=== PATIENT | female | born 1960 | race Caucasian/White ===

== ENCOUNTER 2017-08-07 20:35 | Inpatient (IN) | payer MEDICAID ==
[~2017-08-07] VITALS: Ht 142.2 cm; Wt 51.4 kg
[2017-08-07] MEDS ORDERED: SODIUM CHLORIDE 0.9% 1,000 ML IV ONE (20:42)
[2017-08-07] MEDS ORDERED: IPRATROPIUM BROM 0.5 MG/2.5ML INH SOL NEB ONE (20:45)
[2017-08-07] MEDS ORDERED: methylPREDNISolone SOD SUCC 125 MG/2 ML VL IV ONE (20:45)
[2017-08-07] MEDS ORDERED: ALBUTEROL SULF 2.5 MG/0.5ML(0.5%) NEB SOLN NEB ONE (20:45)
[2017-08-07 21:21] LABS: Hemoglobin 8.8 g/dL (12.2-16.2); Red Blood Cells 2.48 10^6/uL (4.0-5.20)
[2017-08-07 21:23] LABS: Hematocrit 25.3 % (36.0-46.0); Mean Corpuscular Hemoglobin 35.5 pg (28.0-32.0); Mean Corpuscular Hgb Conc. 34.7 g/dL (32.0-36.0); Mean Corpuscular Volume 102.1 fL (80.0-100.0); Platelet Count (auto) 180 10^3/uL (140-450); Red Cell Distribution Width 15.6 % (11.8-14.3); White Blood Cell 7.3 10^3/uL (4.4-10.8)
[2017-08-07 21:36] LABS: Basophils % (manual) 0 (0.0-2.0); Blast Cells 0; Metamyelocytes % 0; Myelocytes % 0; Promyelocytes % 0; Reactive Lymphocytes 0
[2017-08-07 21:39] LABS: Alanine Aminotransferase 40 U/L (13-56); Albumin 2.7 g/dL (3.4-5.0); Alkaline Phosphatase 168 U/L (45-117); Anion Gap 10 (5-15); Aspartate Aminotransferase 99 U/L (15-37); BUN/Creatinine Ratio 14.3; Bilirubin, Total 1.9 mg/dL (0.2-1.0); Blood Urea Nitrogen 9 mg/dL (7-18); Calcium 8.1 mg/dL (8.5-10.1); Carbon Dioxide 20 mmol/L (21-32); Chloride 105 mmol/L (98-107); GFR African American 125 mL/min; GFR Non-African American 104 mL/min; Glucose 117 mg/dL (74-106); Magnesium 2.3 mg/dL (1.6-2.6); Sodium 135 mmol/L (136-145); Total Protein 8.2 g/dL (6.4-8.2)
[2017-08-07 21:44] LABS: INR 1.18 (0.9-1.15); Partial Thromboplastin Time 30.2 sec (22.64-33.71); Prothrombin Time 12.9 sec (9.37-12.3)
[2017-08-07] MEDS ORDERED: MORPHINE SULFATE 4 MG/ML SYR/VIAL IV ONE (21:45)
[2017-08-07] MEDS ORDERED: ONDANSETRON HCL 4 MG/2 ML VIAL IV ONE (21:45)
[2017-08-07 22:49] LABS: Urine Bacteria FEW /hpf (None Seen); Urine Blood Negative /uL (Negative); Urine Mucus FEW (None Seen); Urine Specific Gravity 1.015 (1.001-1.035); Urine WBC 13 /hpf (0 - 5)
[2017-08-07 23:05] LABS: Band Neutrophils % (manual) 2; Lymphocytes % (manual) 20 (10.0-50.0)
[2017-08-07 23:06] LABS: Eosinophils % (manual) 10 (0-7); Monocytes % (manual) 16 (0-12)
[2017-08-08] MEDS ORDERED: IOHEXOL 350 MG/ML 100ML IJ ONE (00:28)
[2017-08-08] MEDS ORDERED: FUROSEMIDE 20 MG/2 ML VIAL IV ONE (02:15)
[2017-08-08] MEDS ORDERED: ACETAMINOPHEN 500 MG TAB PO PRN (06:30)
[2017-08-08] MEDS ORDERED: ONDANSETRON HCL 4 MG/2 ML VIAL IV PRN (06:30)
[2017-08-08] MEDS ORDERED: FUROSEMIDE 40 MG/4 ML VIAL IV ONE (06:30)
[2017-08-08 06:52] VITALS: BP 123/53
[2017-08-08] MEDS: HYDROcodone-ACET 5/325MG TAB PO PRN (06:53)
[2017-08-08] MEDS: DOXYCYCLINE HYC 100MG/250ML 250 ML IV SCH ×2 (06:53→19:41)
[2017-08-08] MEDS: LEVOTHYROXINE SODIUM 25 MCG TAB PO SCH (07:47)
[2017-08-08 08:15] LABS: Eosinophils # (auto) 0 uL; Hemoglobin 8.9 g/dL (12.2-16.2); Monocytes # (auto) 0.2 uL; Neutrophils % (auto) 84.6 % (37.0-80.0); Nucleated Red Blood Cells % 0.1 %
[2017-08-08 08:17] LABS: Basophils # (auto) 0.1 uL; Basophils % (auto) 1.9 % (0.0-2.0); Eosinophils % (auto) 0.1 % (0.0-7.0); Hematocrit 26.3 % (36.0-46.0); Lymphocytes # (auto) 0.6 uL; Lymphocytes % (auto) 10.5 % (10.0-50.0); Mean Corpuscular Hemoglobin 34.6 pg (28.0-32.0); Mean Corpuscular Hgb Conc. 33.9 g/dL (32.0-36.0); Monocytes % (auto) 2.9 % (0.0-12.0); Neutrophils # (auto) 5.1 uL; Platelet Count (auto) 174 10^3/uL (140-450); Red Blood Cells 2.58 10^6/uL (4.0-5.20); Red Cell Distribution Width 15.5 % (11.8-14.3)
[2017-08-08 08:28] LABS: BUN/Creatinine Ratio 14.4; Calcium 8.6 mg/dL (8.5-10.1); Potassium 4.6 mmol/L (3.5-5.1)
[2017-08-08] MEDS: IPRATROPIUM BROM 0.5 MG/2.5ML INH SOL NEB SCH ×2 (11:50→18:45)
[2017-08-08] MEDS: ALBUTEROL SULF 2.5 MG/0.5ML(0.5%) NEB SOLN NEB SCH ×2 (11:50→18:46)
[2017-08-08] MEDS: methylPREDNISolone SOD SUCC 40 MG/ML VL IV SCH ×2 (14:33→22:10)
[2017-08-08 17:42] VITALS: BP 120/64
[2017-08-08 17:56] VITALS: BP 120/64
[2017-08-08] MEDS: FUROSEMIDE 40 MG TAB PO SCH (19:20)
[2017-08-08] MEDS ORDERED: LEVO88TA4 PO (19:48)
[2017-08-08] MEDS ORDERED: SPIR100T21 PO (19:48)
[2017-08-08] MEDS ORDERED: POTA10TA51 PO (19:48)
[2017-08-08] MEDS ORDERED: BACL10TA PO (19:48)
[2017-08-08] MEDS ORDERED: ACET-863 PO (19:48)
[2017-08-08] MEDS ORDERED: FURO40TA4 PO (19:48)
[2017-08-08 22:00] VITALS: BP 120/74
[2017-08-09] MEDS: ALBUTEROL SULF 2.5 MG/0.5ML(0.5%) NEB SOLN NEB SCH ×6 (00:40→22:00)
[2017-08-09] MEDS: IPRATROPIUM BROM 0.5 MG/2.5ML INH SOL NEB SCH ×5 (00:40→18:06)
[2017-08-09] MEDS: HYDROcodone-ACET 5/325MG TAB PO PRN ×3 (00:48→21:29)
[2017-08-09 05:00] VITALS: BP 105/60
[2017-08-09] MEDS: methylPREDNISolone SOD SUCC 40 MG/ML VL IV SCH ×3 (06:10→21:30)
[2017-08-09] MEDS: LEVOTHYROXINE SODIUM 25 MCG TAB PO SCH (06:11)
[2017-08-09] MEDS: FUROSEMIDE 40 MG TAB PO SCH ×2 (06:11→17:46)
[2017-08-09] MEDS: DOXYCYCLINE HYC 100MG/250ML 250 ML IV SCH ×3 (06:12→17:47)
[2017-08-09 09:00] VITALS: BP 103/61
[2017-08-09 12:09] VITALS: BP 99/52
[2017-08-09 17:07] VITALS: BP 114/73
[2017-08-09] MEDS: BUDESONIDE (INHALATION) 0.5 MG/2 ML NEB NEB SCH (18:06)
[2017-08-09 22:00] VITALS: BP 97/45
[2017-08-10] MEDS: ALBUTEROL SULF 2.5 MG/0.5ML(0.5%) NEB SOLN NEB SCH ×4 (02:25→14:00)
[2017-08-10] MEDS: DOXYCYCLINE HYC 100MG/250ML 250 ML IV SCH ×2 (03:30→06:26)
[2017-08-10 05:00] VITALS: BP 106/67
[2017-08-10 05:33] LABS: Basophils # (auto) 0 uL; Basophils % (auto) 0.2 % (0.0-2.0); Eosinophils # (auto) 0 uL; Hemoglobin 8.2 g/dL (12.2-16.2); Lymphocytes # (auto) 0.8 uL; Monocytes # (auto) 1.3 uL; Red Blood Cells 2.41 10^6/uL (4.0-5.20)
[2017-08-10 05:36] LABS: Hematocrit 24.7 % (36.0-46.0); Lymphocytes % (auto) 5.5 % (10.0-50.0); Mean Corpuscular Hemoglobin 34.1 pg (28.0-32.0); Mean Corpuscular Hgb Conc. 33.2 g/dL (32.0-36.0); Mean Corpuscular Volume 102.9 fL (80.0-100.0); Monocytes % (auto) 9.6 % (0.0-12.0); Neutrophils # (auto) 11.9 uL; Neutrophils % (auto) 84.7 % (37.0-80.0); Platelet Count (auto) 155 10^3/uL (140-450); Red Cell Distribution Width 15.9 % (11.8-14.3)
[2017-08-10 05:57] LABS: BUN/Creatinine Ratio 29.7; Calcium 8.1 mg/dL (8.5-10.1)
[2017-08-10] MEDS: BUDESONIDE (INHALATION) 0.5 MG/2 ML NEB NEB SCH (05:58)
[2017-08-10] MEDS: IPRATROPIUM BROM 0.5 MG/2.5ML INH SOL NEB SCH ×3 (05:58→14:00)
[2017-08-10] MEDS: methylPREDNISolone SOD SUCC 40 MG/ML VL IV SCH ×2 (06:24→13:49)
[2017-08-10] MEDS: FUROSEMIDE 40 MG TAB PO SCH (06:24)
[2017-08-10] MEDS: LEVOTHYROXINE SODIUM 25 MCG TAB PO SCH (06:25)
[2017-08-10 09:00] VITALS: BP 110/57
[2017-08-10 12:59] VITALS: BP 106/67
[2017-08-10 13:00] VITALS: BP 101/53
== END 2017-08-10 16:00 | disposition home or self-care (01) | DRG 139 ==
LOC: ER 20:35 → TELE 20:36 → TELE-CENTR 08-08 17:42
PROVIDERS: ADMIT Nurse Practitioner Family; ATTEND Internal Medicine
DX: J18.9 Pneumonia, unspecified organism (principal); I50.43 Acute on chronic combined systolic (congestive) and diastolic (congestive) heart failure; E44.0 Moderate protein-calorie malnutrition; K74.60 Unspecified cirrhosis of liver; I11.0 Hypertensive heart disease with heart failure; J44.0 Chronic obstructive pulmonary disease with (acute) lower respiratory infection; F41.9 Anxiety disorder, unspecified; J44.1 Chronic obstructive pulmonary disease with (acute) exacerbation; E87.1 Hypo-osmolality and hyponatremia; J20.9 Acute bronchitis, unspecified; D64.9 Anemia, unspecified; B19.20 Unspecified viral hepatitis C without hepatic coma; E03.9 Hypothyroidism, unspecified; Z87.891 Personal history of nicotine dependence; Z90.49 Acquired absence of other specified parts of digestive tract; Z68.25 Body mass index [BMI] 25.0-25.9, adult
CPT/HCPCS: 36415; 36600; 71045; 71275; 80048; 80053; 81001; 82805; 83735; 83880; 84484; 85007; 85025; 85027; 85379; 85610; 85730; 87804; 93005; 94640; 96374; 96375; J2405; J3490

== ENCOUNTER 2017-11-18 15:53 | Inpatient (IN) | payer MEDICAID ==
[~2017-11-18] VITALS: Ht 142.2 cm; Wt 52.8 kg
[~2017-11-18 15:53] MED LIST: ACET-863 PO; BACL10TA PO; FURO40TA4 PO; LEVO88TA4 PO; POTA10TA51 PO; SPIR100T21 PO
[2017-11-18] MEDS ORDERED: IPRATROPIUM BROM 0.5 MG/2.5ML INH SOL HHN ONE (17:00)
[2017-11-18] MEDS ORDERED: ALBUTEROL SULF 2.5 MG/0.5ML(0.5%) NEB SOLN HHN ONE (17:00)
[2017-11-18] MEDS ORDERED: methylPREDNISolone SOD SUCC 125 MG/2 ML VL IV ONE (17:00)
[2017-11-18 18:27] LABS: Hematocrit 28.3 % (36.0-46.0); Hemoglobin 9.3 g/dL (12.2-16.2); Mean Corpuscular Hemoglobin 30.6 pg (28.0-32.0); Mean Corpuscular Hgb Conc. 32.9 g/dL (32.0-36.0); Mean Corpuscular Volume 93.2 fL (80.0-100.0); Platelet Count (auto) 216 10^3/uL (140-450); Red Blood Cells 3.04 10^6/uL (4.0-5.20); Red Cell Distribution Width 17.2 % (11.8-14.3); White Blood Cell 20.5 10^3/uL (4.4-10.8)
[2017-11-18 18:29] LABS: Band Neutrophils % (manual) 0; Basophils % (manual) 0 (0.0-2.0); Blast Cells 0; Metamyelocytes % 0; Myelocytes % 0; Promyelocytes % 0; Reactive Lymphocytes 0
[2017-11-18 18:35] LABS: Alanine Aminotransferase 26 U/L (13-56); Albumin 2.4 g/dL (3.4-5.0); Anion Gap 12 (5-15); Aspartate Aminotransferase 56 U/L (15-37); BUN/Creatinine Ratio 33.3; Blood Urea Nitrogen 39 mg/dL (7-18); Calcium 8.2 mg/dL (8.5-10.1); Carbon Dioxide 20 mmol/L (21-32); Chloride 105 mmol/L (98-107); GFR African American 61 mL/min; GFR Non-African American 51 mL/min; Glucose 95 mg/dL (74-106); Magnesium 2.7 mg/dL (1.6-2.6); Potassium 4.3 mmol/L (3.5-5.1); Sodium 137 mmol/L (136-145)
[2017-11-18 18:39] LABS: Alkaline Phosphatase 149 U/L (45-117); Total Protein 7.1 g/dL (6.4-8.2)
[2017-11-18 18:40] LABS: Eosinophils % (manual) 3 (0-7); Lymphocytes % (manual) 18 (10.0-50.0); Monocytes % (manual) 11 (0-12)
[2017-11-18] MEDS ORDERED: BACLOFEN 10 MG TAB PO PRN (19:15)
[2017-11-18] MEDS ORDERED: cefTRIAXone 1GM/10ml IVPUSH 10 ML IV ONE (19:15)
[2017-11-18] MEDS ORDERED: DOCUSATE SOD 100 MG CAP PO PRN (19:30)
[2017-11-18] MEDS ORDERED: ACETAMINOPHEN 325 MG TAB PO PRN (19:30)
[2017-11-18] MEDS ORDERED: AZITHROMYCIN 500MG/ 250ML 250 ML IV ONE (19:45)
[2017-11-18] MEDS: SODIUM CHLORIDE 0.9% 1,000 ML IV SCH ×2 (20:00→23:44)
[2017-11-18] MEDS: FAMOTIDINE 20 MG TAB PO SCH (20:00)
[2017-11-18 20:09] LABS: Urine Bacteria NONE SEEN /hpf (None Seen); Urine Blood Negative /uL (Negative); Urine Specific Gravity 1.017 (1.001-1.035); Urine WBC 1 /hpf (0 - 5)
[2017-11-18 20:23] LABS: Lactic Acid w/Reflex 3.2 mmol/L (0.4-2.0)
[2017-11-18 21:00] VITALS: BP 105/41
[2017-11-18] MEDS: POTASSIUM CHL 10 Meq TABLET PO SCH (22:01)
[2017-11-18] MEDS: HYDROcodone-ACET 5/325MG TAB PO PRN (22:01)
[2017-11-18 22:21] LABS: Lactic Acid w/Reflex 2.8 mmol/L (0.4-2.0)
[2017-11-19] VITALS (8 sets, daily range): BP systolic 89–165; BP diastolic 41–65
[2017-11-19] MEDS: ONDANSETRON HCL 4 MG/2 ML VIAL IV PRN ×3 (00:18→22:04)
[2017-11-19] MEDS: IPRATROPIUM BROM 0.5 MG/2.5ML INH SOL NEB SCH ×5 (00:50→18:15)
[2017-11-19] MEDS: ALBUTEROL SULF 2.5 MG/0.5ML(0.5%) NEB SOLN NEB SCH ×5 (00:50→18:15)
[2017-11-19] MEDS ORDERED: FUROSEMIDE 40 MG TAB PO SCH (06:00)
[2017-11-19] MEDS ORDERED: FLUT100I IN ×2 (06:01)
[2017-11-19] MEDS ORDERED: TIOT1AER2 IN ×2 (06:01)
[2017-11-19] MEDS ORDERED: AZIT250T8 PO (06:01)
[2017-11-19] MEDS: LEVOTHYROXINE SODIUM 25 MCG TAB PO SCH (06:28)
[2017-11-19] MEDS: HYDROcodone-ACET 5/325MG TAB PO PRN ×2 (06:29→17:05)
[2017-11-19 06:36] LABS: Basophils # (auto) 0 uL; Basophils % (auto) 0.1 % (0.0-2.0); Eosinophils # (auto) 0.1 uL; Hemoglobin 7.3 g/dL (12.2-16.2); Lymphocytes # (auto) 1.8 uL; Lymphocytes % (auto) 11.6 % (10.0-50.0); Monocytes # (auto) 0.8 uL; Nucleated Red Blood Cells % 0.1 %; Red Cell Distribution Width 17.3 % (11.8-14.3); White Blood Cell 15.7 10^3/uL (4.4-10.8)
[2017-11-19 06:38] LABS: Eosinophils % (auto) 0.5 % (0.0-7.0); Hematocrit 22.6 % (36.0-46.0); Mean Corpuscular Hemoglobin 30.7 pg (28.0-32.0); Mean Corpuscular Hgb Conc. 32.3 g/dL (32.0-36.0); Mean Corpuscular Volume 94.8 fL (80.0-100.0); Monocytes % (auto) 5.3 % (0.0-12.0); Neutrophils % (auto) 82.5 % (37.0-80.0); Platelet Count (auto) 184 10^3/uL (140-450); Red Blood Cells 2.38 10^6/uL (4.0-5.20)
[2017-11-19 06:52] LABS: Albumin 1.9 g/dL (3.4-5.0); Calcium 7.1 mg/dL (8.5-10.1); Potassium 4.2 mmol/L (3.5-5.1)
[2017-11-19 06:55] LABS: Bilirubin, Total 0.6 mg/dL (0.2-1.0)
[2017-11-19] MEDS: BOOST PLUS 8 ounce PO SCH ×3 (08:00→18:00)
[2017-11-19] MEDS ORDERED: SPIRONOLACTONE 25 MG TAB PO SCH (08:00)
[2017-11-19] MEDS: cefTRIAXone 1GM/10ml IVPUSH 10 ML IV SCH (09:00)
[2017-11-19] MEDS: FAMOTIDINE 20 MG TAB PO SCH (10:00)
[2017-11-19] MEDS: MULTIPLE VITAMIN TAB PO SCH (10:00)
[2017-11-19] MEDS: AZITHROMYCIN 500MG/ 250ML 250 ML IV SCH (10:00)
[2017-11-19] MEDS: POTASSIUM CHL 10 Meq TABLET PO SCH (10:00)
[2017-11-19] MEDS: SODIUM CHLORIDE 0.9% 1,000 ML IV SCH (15:00)
[2017-11-19] MEDS ORDERED: PANTOPRAZOLE 40 MG/10 ML VIAL IV ONE (15:00)
[2017-11-19] MEDS: metroNIDAZOLE 500MG/100ML 100 ML IV SCH (16:00)
[2017-11-19] MEDS: LACTULOSE 20Gm/30ML SOLN PO SCH (18:00)
[2017-11-19] MEDS: MEPERIDINE HCL (25 MG/ML) 1ML VIAL IM PRN (22:04)
[2017-11-20] VITALS (17 sets, daily range): BP systolic 91–121; BP diastolic 53–76
[2017-11-20] MEDS: IPRATROPIUM BROM 0.5 MG/2.5ML INH SOL NEB SCH ×4 (00:09→18:45)
[2017-11-20] MEDS: ALBUTEROL SULF 2.5 MG/0.5ML(0.5%) NEB SOLN NEB SCH ×4 (00:09→18:46)
[2017-11-20] MEDS: metroNIDAZOLE 500MG/100ML 100 ML IV SCH ×4 (00:21→23:58)
[2017-11-20 02:52] LABS: Platelet Count (auto) 212 10^3/uL (140-450)
[2017-11-20 02:54] LABS: Hematocrit 20.5 % (36.0-46.0); Mean Corpuscular Hemoglobin 30.3 pg (28.0-32.0); Mean Corpuscular Hgb Conc. 32.2 g/dL (32.0-36.0); Mean Corpuscular Volume 94.3 fL (80.0-100.0); Red Blood Cells 2.18 10^6/uL (4.0-5.20); Red Cell Distribution Width 16.8 % (11.8-14.3); White Blood Cell 27.7 10^3/uL (4.4-10.8)
[2017-11-20 02:59] LABS: Basophils % (manual) 0 (0.0-2.0); Blast Cells 0; Hemoglobin 6.6 g/dL (12.2-16.2); Metamyelocytes % 0; Myelocytes % 0; Promyelocytes % 0; Reactive Lymphocytes 0
[2017-11-20 03:08] LABS: Albumin 1.9 g/dL (3.4-5.0); BUN/Creatinine Ratio 35.8; Calcium 7.4 mg/dL (8.5-10.1); Potassium 4.5 mmol/L (3.5-5.1)
[2017-11-20 03:11] LABS: Bilirubin, Total 0.5 mg/dL (0.2-1.0); Total Protein 5.8 g/dL (6.4-8.2)
[2017-11-20 04:05] LABS: Band Neutrophils % (manual) 2; Eosinophils % (manual) 1 (0-7); Lymphocytes % (manual) 7 (10.0-50.0); Monocytes % (manual) 14 (0-12)
[2017-11-20] MEDS: SODIUM CHLORIDE 0.9% 1,000 ML IV SCH ×2 (04:20→23:58)
[2017-11-20] MEDS: MEPERIDINE HCL (25 MG/ML) 1ML VIAL IM PRN ×2 (05:06→13:25)
[2017-11-20] MEDS: LACTULOSE 20Gm/30ML SOLN PO SCH ×3 (06:00→12:00)
[2017-11-20] MEDS: LEVOTHYROXINE SODIUM 25 MCG TAB PO SCH (06:03)
[2017-11-20] MEDS: BOOST PLUS 8 ounce PO SCH ×2 (08:00→12:00)
[2017-11-20 08:33] LABS: INR 1.12 (0.9-1.15); Partial Thromboplastin Time 26.4 sec (23.78-33.04); Prothrombin Time 11.9 sec (9.27-12.13)
[2017-11-20] MEDS: cefTRIAXone 1GM/10ml IVPUSH 10 ML IV SCH (09:00)
[2017-11-20] MEDS: MULTIPLE VITAMIN TAB PO SCH (10:00)
[2017-11-20] MEDS: AZITHROMYCIN 500MG/ 250ML 250 ML IV SCH (10:00)
[2017-11-20] MEDS: PANTOPRAZOLE 40 MG/10 ML VIAL IV SCH (10:00)
[2017-11-20] MEDS ORDERED: FUROSEMIDE 20 MG/2 ML VIAL IV ONE (10:15)
[2017-11-20 10:27] LABS: Amylase 533 U/L (25-115); Lipase 9971 U/L (73-393)
[2017-11-20 14:01] LABS: Hematocrit 32.7 % (36.0-46.0); Hemoglobin 10.5 g/dL (12.2-16.2)
[2017-11-20 18:29] LABS: Hematocrit 30.7 % (36.0-46.0); Hemoglobin 10.1 g/dL (12.2-16.2)
[2017-11-20] MEDS: HYDROcodone-ACET 5/325MG TAB PO PRN ×2 (19:30→23:58)
[2017-11-21] MEDS: IPRATROPIUM BROM 0.5 MG/2.5ML INH SOL NEB SCH ×4 (00:22→19:18)
[2017-11-21] MEDS: ALBUTEROL SULF 2.5 MG/0.5ML(0.5%) NEB SOLN NEB SCH ×4 (00:22→19:18)
[2017-11-21 01:02] LABS: Hematocrit 28.6 % (36.0-46.0); Hemoglobin 9.4 g/dL (12.2-16.2)
[2017-11-21 05:28] VITALS: BP 108/58
[2017-11-21] MEDS: SODIUM CHLORIDE 0.9% 1,000 ML IV SCH (06:21)
[2017-11-21] MEDS: LACTULOSE 20Gm/30ML SOLN PO SCH ×3 (06:21→17:46)
[2017-11-21] MEDS: LEVOTHYROXINE SODIUM 25 MCG TAB PO SCH (06:21)
[2017-11-21] MEDS: HYDROcodone-ACET 5/325MG TAB PO PRN ×3 (06:22→22:36)
[2017-11-21] MEDS: BOOST PLUS 8 ounce PO SCH ×3 (08:00→19:31)
[2017-11-21 08:01] LABS: Hematocrit 30.6 % (36.0-46.0)
[2017-11-21] MEDS: cefTRIAXone 1GM/10ml IVPUSH 10 ML IV SCH (08:50)
[2017-11-21] MEDS: metroNIDAZOLE 500MG/100ML 100 ML IV SCH (08:51)
[2017-11-21 09:00] VITALS: BP 115/63
[2017-11-21] MEDS: AZITHROMYCIN 500MG/ 250ML 250 ML IV SCH (09:51)
[2017-11-21] MEDS: MULTIPLE VITAMIN TAB PO SCH (09:51)
[2017-11-21] MEDS: PANTOPRAZOLE 40 MG/10 ML VIAL IV SCH (09:51)
[2017-11-21] MEDS ORDERED: PANTOPRAZOLE 40 MG TAB PO SCH (10:15)
[2017-11-21 12:00] LABS: Hematocrit 27.1 % (36.0-46.0)
[2017-11-21 12:20] LABS: BUN/Creatinine Ratio 25.8; Calcium 7.5 mg/dL (8.5-10.1); Potassium 3.8 mmol/L (3.5-5.1)
[2017-11-21 12:22] LABS: Amylase 139 U/L (25-115); Lipase 674 U/L (73-393)
[2017-11-21 13:00] VITALS: BP 118/74
[2017-11-21 17:00] VITALS: BP 123/81
[2017-11-21 18:14] LABS: Hematocrit 30.9 % (36.0-46.0); Hemoglobin 10.2 g/dL (12.2-16.2)
[2017-11-21 19:22] VITALS: BP 123/81
[2017-11-21] MEDS: PANTOPRAZOLE 40 MG TAB PO SCH (21:19)
[2017-11-21 22:00] VITALS: BP 101/68
[2017-11-22] MEDS: IPRATROPIUM BROM 0.5 MG/2.5ML INH SOL NEB SCH ×4 (00:28→18:45)
[2017-11-22] MEDS: ALBUTEROL SULF 2.5 MG/0.5ML(0.5%) NEB SOLN NEB SCH ×4 (00:28→18:45)
[2017-11-22] MEDS: TEMAZEPAM 15 MG CAP PO PRN ×2 (01:20→22:54)
[2017-11-22 05:00] VITALS: BP 106/62
[2017-11-22 05:50] LABS: Hematocrit 26.3 % (36.0-46.0); Hemoglobin 8.9 g/dL (12.2-16.2); Mean Corpuscular Hgb Conc. 33.8 g/dL (32.0-36.0); Mean Corpuscular Volume 91.6 fL (80.0-100.0); Platelet Count (auto) 182 10^3/uL (140-450); Red Blood Cells 2.87 10^6/uL (4.0-5.20); Red Cell Distribution Width 17.9 % (11.8-14.3); White Blood Cell 14.1 10^3/uL (4.4-10.8)
[2017-11-22 05:53] LABS: Basophils % (manual) 0 (0.0-2.0); Blast Cells 0; Metamyelocytes % 0; Myelocytes % 0; Promyelocytes % 0; Reactive Lymphocytes 0
[2017-11-22] MEDS: LACTULOSE 20Gm/30ML SOLN PO SCH ×2 (06:00→18:04)
[2017-11-22] MEDS: LEVOTHYROXINE SODIUM 25 MCG TAB PO SCH (06:14)
[2017-11-22] MEDS: HYDROcodone-ACET 5/325MG TAB PO PRN ×4 (06:14→22:54)
[2017-11-22 08:00] VITALS: BP 92/56
[2017-11-22] MEDS: BOOST PLUS 8 ounce PO SCH ×3 (08:00→18:04)
[2017-11-22 08:16] LABS: Band Neutrophils % (manual) 6; Eosinophils % (manual) 4 (0-7); Lymphocytes % (manual) 10 (10.0-50.0); Monocytes % (manual) 25 (0-12)
[2017-11-22] MEDS ORDERED: fentaNYL CITRATE 100 MCG/2 ML VL ONE (08:21)
[2017-11-22] MEDS ORDERED: MIDAZOLAM HCL 5 MG/ML-1ML VIAL ONE (08:21)
[2017-11-22] MEDS ORDERED: SODIUM CHLORIDE LOCK 10 ML ONE (08:21)
[2017-11-22] MEDS ORDERED: LIDOCAINE VISCOUS 2% 15ML UD ONE (08:21)
[2017-11-22] MEDS ORDERED: diphenhdrAMINE HCL 50 MG/1 ML VL ONE (08:21)
[2017-11-22] MEDS: cefTRIAXone 1GM/10ml IVPUSH 10 ML IV SCH (08:56)
[2017-11-22] MEDS: MULTIPLE VITAMIN TAB PO SCH (11:27)
[2017-11-22] MEDS: PANTOPRAZOLE 40 MG TAB PO SCH ×2 (11:27→22:20)
[2017-11-22 12:00] VITALS: BP 144/75
[2017-11-22 13:44] LABS: Hematocrit 29.2 % (36.0-46.0); Hemoglobin 9.9 g/dL (12.2-16.2)
[2017-11-22] MEDS ORDERED: PANT40T PO ×2 (13:59)
[2017-11-22 17:00] VITALS: BP 119/66
[2017-11-22 21:51] VITALS: BP 141/75
[2017-11-22 23:14] LABS: Hematocrit 28.5 % (36.0-46.0); Hemoglobin 9.5 g/dL (12.2-16.2)
[2017-11-23] MEDS: ALBUTEROL SULF 2.5 MG/0.5ML(0.5%) NEB SOLN NEB SCH ×2 (00:31→06:42)
[2017-11-23] MEDS: IPRATROPIUM BROM 0.5 MG/2.5ML INH SOL NEB SCH ×2 (00:31→06:42)
[2017-11-23 04:57] VITALS: BP 127/71
[2017-11-23] MEDS: LACTULOSE 20Gm/30ML SOLN PO SCH (06:00)
[2017-11-23 06:09] LABS: Hematocrit 26.3 % (36.0-46.0); Hemoglobin 8.9 g/dL (12.2-16.2); Mean Corpuscular Hemoglobin 30.9 pg (28.0-32.0); Mean Corpuscular Hgb Conc. 33.7 g/dL (32.0-36.0); Mean Corpuscular Volume 91.7 fL (80.0-100.0); Platelet Count (auto) 189 10^3/uL (140-450); Red Blood Cells 2.87 10^6/uL (4.0-5.20); Red Cell Distribution Width 17.5 % (11.8-14.3); White Blood Cell 13.8 10^3/uL (4.4-10.8)
[2017-11-23 06:12] LABS: Basophils % (manual) 0 (0.0-2.0); Metamyelocytes % 0
[2017-11-23 06:13] LABS: Blast Cells 0; Myelocytes % 0; Promyelocytes % 0; Reactive Lymphocytes 0
[2017-11-23] MEDS: LEVOTHYROXINE SODIUM 25 MCG TAB PO SCH (06:18)
[2017-11-23 07:31] LABS: Band Neutrophils % (manual) 3; Eosinophils % (manual) 3 (0-7); Lymphocytes % (manual) 14 (10.0-50.0); Monocytes % (manual) 14 (0-12)
[2017-11-23 07:42] VITALS: BP 104/64
[2017-11-23] MEDS: BOOST PLUS 8 ounce PO SCH (08:44)
[2017-11-23] MEDS: cefTRIAXone 1GM/10ml IVPUSH 10 ML IV SCH (09:22)
[2017-11-23] MEDS: PANTOPRAZOLE 40 MG TAB PO SCH (09:25)
[2017-11-23] MEDS: MULTIPLE VITAMIN TAB PO SCH (09:26)
[2017-11-23] MEDS ORDERED: AZITHROMYCIN 250 MG TAB PO SCH (10:00)
[2017-11-23 11:59] VITALS: BP 106/67
[2017-11-23 12:18] VITALS: BP 106/67
== END 2017-11-23 14:00 | disposition home or self-care (01) | DRG 282 ==
LOC: ER 15:53 → OVERFLOW 15:54 → CENTRAL 20:37
PROVIDERS: ADMIT Internal Medicine; ATTEND Internal Medicine
PROC: 30233N1 Transfusion of Nonautologous Red Blood Cells into Peripheral Vein, Percutaneous Approach (ICD-10-PCS; 2017-11-20)
PROC: 0DJ08ZZ Inspection of Upper Intestinal Tract, Via Natural or Artificial Opening Endoscopic (ICD-10-PCS; principal; 2017-11-22 10:29)
DX: K85.90 Acute pancreatitis without necrosis or infection, unspecified (principal); N17.0 Acute kidney failure with tubular necrosis; E43 Unspecified severe protein-calorie malnutrition; I50.9 Heart failure, unspecified; K76.6 Portal hypertension; K25.4 Chronic or unspecified gastric ulcer with hemorrhage; I85.00 Esophageal varices without bleeding; J44.1 Chronic obstructive pulmonary disease with (acute) exacerbation; K26.4 Chronic or unspecified duodenal ulcer with hemorrhage; K29.71 Gastritis, unspecified, with bleeding; J45.901 Unspecified asthma with (acute) exacerbation; K74.60 Unspecified cirrhosis of liver; E83.42 Hypomagnesemia; E86.0 Dehydration; E83.51 Hypocalcemia; N18.3 Chronic kidney disease, stage 3 (moderate); K31.89 Other diseases of stomach and duodenum; K44.9 Diaphragmatic hernia without obstruction or gangrene; K59.00 Constipation, unspecified; D63.8 Anemia in other chronic diseases classified elsewhere; B19.20 Unspecified viral hepatitis C without hepatic coma; E03.9 Hypothyroidism, unspecified; F41.9 Anxiety disorder, unspecified; I25.10 Atherosclerotic heart disease of native coronary artery without angina pectoris; I25.2 Old myocardial infarction; Q77.4 Achondroplasia; Z87.891 Personal history of nicotine dependence; Z79.899 Other long term (current) drug therapy; Z90.49 Acquired absence of other specified parts of digestive tract; Z68.26 Body mass index [BMI] 26.0-26.9, adult
CPT/HCPCS: 36415; 71045; 74176; 80048; 80053; 81001; 82150; 82270; 83605; 83690; 83735; 83880; 84443; 84484; 85007; 85014; 85018; 85025; 85027; 85610; 85730; 86677; 86850; 86900; 86901; 86920; 87040; 87081; 87804; 93005; 93306; 94640; 94761; 96365; 96375; C9113; J2250; J2405; J3490

== ENCOUNTER 2017-11-25 06:48 | Emergency (ER) | payer MEDICAID ==
[~2017-11-25] VITALS: Ht 142.2 cm; Wt 45.4 kg
[~2017-11-25 06:48] MED LIST changes: +AZIT250T8 PO; +FLUT100I IN; +PANT40T PO; +TIOT1AER2 IN
[2017-11-25 12:11] LABS: Basophils # (auto) 0.1 uL; Basophils % (auto) 0.6 % (0.0-2.0); Eosinophils # (auto) 0.7 uL; Eosinophils % (auto) 4.1 % (0.0-7.0); Hematocrit 31.9 % (36.0-46.0); Hemoglobin 10.3 g/dL (12.2-16.2); Lymphocytes # (auto) 2.4 uL; Mean Corpuscular Hemoglobin 30.4 pg (28.0-32.0); Mean Corpuscular Hgb Conc. 32.3 g/dL (32.0-36.0); Mean Corpuscular Volume 94.3 fL (80.0-100.0); Monocytes # (auto) 2.9 uL; Monocytes % (auto) 16.9 % (0.0-12.0); Neutrophils # (auto) 11.1 uL; Neutrophils % (auto) 64.4 % (37.0-80.0); Nucleated Red Blood Cells % 0.1 %; Platelet Count (auto) 214 10^3/uL (140-450); Red Blood Cells 3.38 10^6/uL (4.0-5.20); Red Cell Distribution Width 18.5 % (11.8-14.3); White Blood Cell 17.2 10^3/uL (4.4-10.8)
[2017-11-25 12:27] LABS: Alanine Aminotransferase 31 U/L (13-56); Albumin 2.3 g/dL (3.4-5.0); Alkaline Phosphatase 119 U/L (45-117); Anion Gap 8 (5-15); Aspartate Aminotransferase 71 U/L (15-37); BUN/Creatinine Ratio 13.8; Blood Urea Nitrogen 8 mg/dL (7-18); Calcium 7.9 mg/dL (8.5-10.1); Carbon Dioxide 21 mmol/L (21-32); Chloride 106 mmol/L (98-107); GFR African American 138 mL/min; GFR Non-African American 114 mL/min; Glucose 109 mg/dL (74-106); Magnesium 2.6 mg/dL (1.6-2.6); Potassium 4.4 mmol/L (3.5-5.1); Sodium 135 mmol/L (136-145); Total Protein 7.1 g/dL (6.4-8.2)
[2017-11-25 13:30] VITALS: BP 102/48
== END 2017-11-25 17:58 | disposition home or self-care (01) ==
LOC: ER 06:48
DX: R07.89 Other chest pain (principal); D72.829 Elevated white blood cell count, unspecified; J44.9 Chronic obstructive pulmonary disease, unspecified; I25.2 Old myocardial infarction; Z90.49 Acquired absence of other specified parts of digestive tract; Z79.899 Other long term (current) drug therapy; Z87.891 Personal history of nicotine dependence
CPT/HCPCS: 36415; 71045; 80053; 83735; 83880; 84484; 85025; 93005

== ENCOUNTER 2018-01-07 21:05 | Emergency (ER) | payer MEDICAID ==
[~2018-01-07] VITALS: Ht 142.2 cm; Wt 56.8 kg
[~2018-01-07 21:05] MED LIST changes: -AZIT250T8 PO
[2018-01-07] MEDS ORDERED: IPRATROPIUM BROM 0.5 MG/2.5ML INH SOL NEB ONE (21:15)
[2018-01-07] MEDS ORDERED: ALBUTEROL SULF 2.5 MG/0.5ML(0.5%) NEB SOLN NEB ONE (21:15)
[2018-01-07 21:23] VITALS: BP 121/69
[2018-01-07 21:46] LABS: Basophils # (auto) 0.1 uL; Eosinophils # (auto) 0.6 uL; Eosinophils % (auto) 9.7 % (0.0-7.0); Hematocrit 25.8 % (36.0-46.0); Hemoglobin 8.6 g/dL (12.2-16.2); Lymphocytes # (auto) 2.1 uL; Lymphocytes % (auto) 33.8 % (10.0-50.0); Mean Corpuscular Hemoglobin 32.3 pg (28.0-32.0); Mean Corpuscular Hgb Conc. 33.5 g/dL (32.0-36.0); Mean Corpuscular Volume 96.4 fL (80.0-100.0); Monocytes # (auto) 1.2 uL; Neutrophils # (auto) 2.2 uL; Neutrophils % (auto) 35.1 % (37.0-80.0); Nucleated Red Blood Cells % 0.1 %; Red Blood Cells 2.67 10^6/uL (4.0-5.20); Red Cell Distribution Width 18.6 % (11.8-14.3); White Blood Cell 6.3 10^3/uL (4.4-10.8)
[2018-01-07 21:49] LABS: Monocytes % (auto) 19.4 % (0.0-12.0)
[2018-01-07 21:52] LABS: Platelet Count (auto) 134 10^3/uL (140-450)
[2018-01-07 22:03] LABS: Alanine Aminotransferase 32 U/L (13-56); Albumin 2.3 g/dL (3.4-5.0); Anion Gap 9 (5-15); Aspartate Aminotransferase 91 U/L (15-37); BUN/Creatinine Ratio 16.7; Blood Urea Nitrogen 8 mg/dL (7-18); Calcium 7.3 mg/dL (8.5-10.1); Carbon Dioxide 20 mmol/L (21-32); Chloride 118 mmol/L (98-107); GFR African American 171 mL/min; GFR Non-African American 142 mL/min; Glucose 99 mg/dL (74-106); Potassium 3.5 mmol/L (3.5-5.1); Sodium 147 mmol/L (136-145)
[2018-01-07 22:11] LABS: Alkaline Phosphatase 194 U/L (45-117); Bilirubin, Total 1.2 mg/dL (0.2-1.0); Total Protein 6.9 g/dL (6.4-8.2)
[2018-01-07 22:27] LABS: INR 1.16 (0.9-1.15); Partial Thromboplastin Time 27.3 sec (23.78-33.04); Prothrombin Time 12.3 sec (9.27-12.13)
== END 2018-01-08 | disposition left against medical advice (07) ==
LOC: ER 21:06
DX: R06.02 Shortness of breath (principal); Z53.21 Procedure and treatment not carried out due to patient leaving prior to being seen by health care provider
CPT/HCPCS: 36415; 71045; 80053; 83880; 84484; 85025; 85610; 85730; 93005; 94640

== ENCOUNTER 2018-03-01 14:16 | Inpatient (IN) | payer MEDICAID, OTHER ==
[~2018-03-01] VITALS: Ht 152.4 cm; Wt 39.0 kg
[~2018-03-01 14:16] MED LIST changes: -ACET-863 PO; +ACET-947 PO; -SPIR100T21 PO; +SPIR100T4 PO
[2018-03-01] MEDS ORDERED: NALOXONE HCL 0.4 MG/ML VIAL ONE (14:19)
[2018-03-01] MEDS ORDERED: ACETAMINOPHEN 650 MG RECT SUPP PR ONE ×2 (14:27→14:45)
[2018-03-01] MEDS ORDERED: MIDAZOLAM DRIP 50 mg/50mL 50 ML IV ONE (14:27)
[2018-03-01] MEDS ORDERED: SUCCINYLCHOLINE CHLORIDE 20 MG/ML 10ML VIAL IV ONE (14:30)
[2018-03-01] MEDS ORDERED: ETOMIDATE (2MG/ML) 20ML VIAL IV ONE (14:30)
[2018-03-01] MEDS ORDERED: NALOXONE HCL 0.4 MG/ML VIAL IV ONE (14:30)
[2018-03-01] MEDS ORDERED: SODIUM CHLORIDE 0.9% 1,000 ML IV ONE ×2 (14:37)
[2018-03-01] MEDS: MIDAZOLAM DRIP 50 mg/50mL 50 ML IV SCH ×2 (14:42→18:25)
[2018-03-01] MEDS ORDERED: PROPOFOL 100 ML IV SCH (14:42)
[2018-03-01] MEDS ORDERED: PIPERACILLIN-TAZOB 3.375GM 100 ML IV ONE (14:45)
[2018-03-01 15:05] LABS: Hematocrit 26.3 % (36.0-46.0); Hemoglobin 8.5 g/dL (12.2-16.2); Mean Corpuscular Hemoglobin 28.3 pg (28.0-32.0); Mean Corpuscular Hgb Conc. 32.2 g/dL (32.0-36.0); Mean Corpuscular Volume 87.8 fL (80.0-100.0); Platelet Count (auto) 142 10^3/uL (140-450); White Blood Cell 7.8 10^3/uL (4.4-10.8)
[2018-03-01] MEDS: PROPOFOL 100 ML IV SCH (15:10)
[2018-03-01 15:16] LABS: Albumin 2.4 g/dL (3.4-5.0); BUN/Creatinine Ratio 16.4; Bilirubin, Total 4.1 mg/dL (0.2-1.0); Calcium 8.4 mg/dL (8.5-10.1); Potassium 3.7 mmol/L (3.5-5.1)
[2018-03-01 15:23] LABS: Red Cell Distribution Width 22.2 % (11.8-14.3)
[2018-03-01 15:24] LABS: Basophils % (manual) 0 (0.0-2.0); Blast Cells 0; Metamyelocytes % 0; Myelocytes % 0; Promyelocytes % 0; Reactive Lymphocytes 0
[2018-03-01 15:28] LABS: Lactic Acid w/Reflex 11.7 mmol/L (0.4-2.0)
[2018-03-01 15:29] LABS: INR 1.54 (0.9-1.15); Partial Thromboplastin Time 29.4 sec (23.78-33.04); Prothrombin Time 16.1 sec (9.27-12.13)
[2018-03-01 15:38] VITALS: BP 122/70
[2018-03-01 15:48] LABS: Urine Bacteria NONE SEEN /hpf (None Seen); Urine Blood Negative /uL (Negative); Urine Hyaline Cast FEW /lpf (0 - 2); Urine Mucus FEW (None Seen); Urine Specific Gravity 1.031 (1.001-1.035); Urine WBC 3 /hpf (0 - 5)
[2018-03-01 17:03] VITALS: BP 115/68
[2018-03-01] MEDS ORDERED: PANTOPRAZOLE 40 MG/10 ML VIAL IV ONE (17:15)
[2018-03-01] MEDS ORDERED: MORPHINE SULFATE 4 MG/ML SYR/VIAL IV PRN ×2 (17:15)
[2018-03-01] MEDS ORDERED: DEXTROSE (50%) 50ML SYRG IV PRN (17:15)
[2018-03-01] MEDS ORDERED: NITROGLYCERIN 0.4 MG SL TAB SL PRN (17:15)
[2018-03-01] MEDS ORDERED: ONDANSETRON HCL 4 MG/2 ML VIAL IV PRN (17:15)
[2018-03-01] MEDS ORDERED: cefTRIAXone 1GM/10ml IVPUSH 10 ML IV ONE (17:15)
[2018-03-01] MEDS ORDERED: LORazepam 2MG/ML-1ML VIAL IV PRN (17:15)
[2018-03-01] MEDS ORDERED: GASTROGRAFIN 120 ML SOL ONE (17:35)
[2018-03-01 17:40] LABS: Band Neutrophils % (manual) 10; Eosinophils % (manual) 1 (0-7); Lymphocytes % (manual) 10 (10.0-50.0); Monocytes % (manual) 24 (0-12)
[2018-03-01] MEDS ORDERED: metroNIDAZOLE 500MG/100ML 100 ML IV SCH (18:00)
[2018-03-01 18:09] VITALS: BP 112/57
[2018-03-01 18:13] LABS: Amylase 48 U/L (25-115); Lipase 90 U/L (73-393)
[2018-03-01 18:30] LABS: Alcohol, Urine < 3.0 mg/dL (0-5); Amphetamine Screen, Urine NEGATIVE (NEGATIVE); Barbiturate Scree,Urine NEGATIVE (NEGATIVE); Benzodiazephine Screen, Urine NEGATIVE (NEGATIVE); Cannabinoid Screen, Urine NEGATIVE (NEGATIVE); Cocaine Screen, Urine NEGATIVE (NEGATIVE); Opiate Scree,Urine NEGATIVE (NEGATIVE); Phencyclidine Screen, Urine NEGATIVE (NEGATIVE)
[2018-03-01] MEDS: SODIUM CHLORIDE 0.9% 1,000 ML IV SCH (18:50)
[2018-03-01] MEDS: ACCU-CHEK COMFORT CURVE STRIP VI SCH (18:55)
[2018-03-01] MEDS: CLINDAMYCIN 600MG IV 50 ML IV SCH ×2 (18:55→22:28)
[2018-03-01] MEDS: InsuLIN REG 1unit/0.01ml Soln (100units/ml) SC SCH (18:55)
[2018-03-01 20:36] VITALS: BP 85/51
[2018-03-01] MEDS ORDERED: SODIUM CHLORIDE 0.9% 250 ML IV ONE (21:16)
[2018-03-01] MEDS ORDERED: SODIUM CHLORIDE 0.9% 250 ML IV SCH (21:30)
[2018-03-01 21:52] LABS: Hematocrit 21.2 % (36.0-46.0)
[2018-03-01 21:55] LABS: Hemoglobin 6.9 g/dL (12.2-16.2)
[2018-03-01] MEDS: PHENYLEPHRINE INJ 20 MG in D5W 5% 250 ML IV SCH (22:00)
[2018-03-01] MEDS: PANTOPRAZOLE 40 MG/10 ML VIAL IV SCH (22:29)
[2018-03-01 22:30] VITALS: BP 88/50
[2018-03-01] MEDS: fentaNYL Drip 2500mCg/250mlNS 250 ML IV SCH (23:21)
[2018-03-02] VITALS (14 sets, daily range): BP systolic 85–113; BP diastolic 47–70
[2018-03-02] MEDS: InsuLIN REG 1unit/0.01ml Soln (100units/ml) SC SCH ×5 (01:01→18:25)
[2018-03-02] MEDS: ACCU-CHEK COMFORT CURVE STRIP VI SCH ×5 (01:01→18:25)
[2018-03-02 01:04] LABS: Hematocrit 21.2 % (36.0-46.0)
[2018-03-02 01:08] LABS: Hemoglobin 6.8 g/dL (12.2-16.2)
[2018-03-02] MEDS: SODIUM CHLORIDE 0.9% 1,000 ML IV SCH ×3 (03:13→23:36)
[2018-03-02] MEDS ORDERED: ATRACURIUM BESYLATE 1,000 MG in D5W 5% 150 ML IV ONE (03:30)
[2018-03-02] MEDS: MIDAZOLAM DRIP 50 mg/50mL 50 ML IV SCH ×4 (04:05→17:05)
[2018-03-02] MEDS ORDERED: ROCURONIUM 10MG/ML 10ML VIAL IV ONE (04:31)
[2018-03-02] MEDS: CLINDAMYCIN 600MG IV 50 ML IV SCH ×3 (06:18→22:21)
[2018-03-02] MEDS: PHENYLEPHRINE INJ 20 MG in D5W 5% 250 ML IV SCH ×3 (06:20→23:00)
[2018-03-02 07:09] LABS: Hematocrit 30.9 % (36.0-46.0); Hemoglobin 10.2 g/dL (12.2-16.2); Mean Corpuscular Hemoglobin 29.5 pg (28.0-32.0); Mean Corpuscular Volume 89.4 fL (80.0-100.0); Platelet Count (auto) 108 10^3/uL (140-450); Red Blood Cells 3.46 10^6/uL (4.0-5.20); White Blood Cell 6.2 10^3/uL (4.4-10.8)
[2018-03-02] MEDS ORDERED: ACETYLCYSTEINE ORAL for CIN 20%(200MG/ML) 4ML PO ONE (07:15)
[2018-03-02 07:24] LABS: Red Cell Distribution Width 21.6 % (11.8-14.3)
[2018-03-02 07:25] LABS: Basophils % (manual) 0 (0.0-2.0); Blast Cells 0; Eosinophils % (manual) 0 (0-7); Metamyelocytes % 0; Myelocytes % 0; Promyelocytes % 0; Reactive Lymphocytes 0
[2018-03-02 07:47] LABS: Albumin 2.3 g/dL (3.4-5.0); BUN/Creatinine Ratio 27.8; Bilirubin, Total 3.6 mg/dL (0.2-1.0); Calcium 7.9 mg/dL (8.5-10.1); Potassium 3.3 mmol/L (3.5-5.1); Total Protein 7.7 g/dL (6.4-8.2)
[2018-03-02] MEDS ORDERED: IOHEXOL 350 MG/ML 100ML IJ ONE (08:09)
[2018-03-02 08:16] LABS: Band Neutrophils % (manual) 4; Lymphocytes % (manual) 20 (10.0-50.0); Monocytes % (manual) 22 (0-12)
[2018-03-02] MEDS: cefTRIAXone 1GM/10ml IVPUSH 10 ML IV SCH (10:00)
[2018-03-02] MEDS ORDERED: ENOXAPARIN SOD 40 MG/0.4 ML SYRINGE SC SCH (10:00)
[2018-03-02] MEDS ORDERED: PANTOPRAZOLE 40 MG/10 ML VIAL IV SCH (10:00)
[2018-03-02] MEDS: ENOXAPARIN SOD 40 MG/0.4 ML SYRINGE SC SCH (11:21)
[2018-03-02] MEDS: PANTOPRAZOLE 40 MG/10 ML VIAL IV SCH ×2 (11:21→22:21)
[2018-03-02] MEDS ORDERED: LACTULOSE 20Gm/30ML SOLN NG ONE (16:30)
[2018-03-02] MEDS: PROPOFOL 100 ML IV SCH (17:06)
[2018-03-02] MEDS: fentaNYL Drip 2500mCg/250mlNS 250 ML IV SCH (19:18)
[2018-03-02] MEDS ORDERED: ACETAMINOPHEN 325 MG TAB PO ONE (21:15)
[2018-03-02] MEDS: LACTULOSE 20Gm/30ML SOLN NG SCH (22:21)
[2018-03-03] VITALS (13 sets, daily range): BP systolic 80–106; BP diastolic 46–67
[2018-03-03] MEDS: ACCU-CHEK COMFORT CURVE STRIP VI SCH ×5 (00:30→23:56)
[2018-03-03] MEDS: InsuLIN REG 1unit/0.01ml Soln (100units/ml) SC SCH ×5 (00:31→23:56)
[2018-03-03] MEDS: LACTULOSE 20Gm/30ML SOLN NG SCH ×6 (02:36→21:58)
[2018-03-03] MEDS: ACETAMINOPHEN 650 mg PER 20 mL UD PO PRN (04:40)
[2018-03-03] MEDS ORDERED: IBUPROFEN 100MG/5ML ORAL SUSP 100 MG/5 ML UD PO ONE (06:00)
[2018-03-03] MEDS: CLINDAMYCIN 600MG IV 50 ML IV SCH (06:23)
[2018-03-03] MEDS ORDERED: IBUPROFEN 400 MG TAB PO PRN (07:45)
[2018-03-03 07:58] LABS: Hemoglobin 8.4 g/dL (12.2-16.2)
[2018-03-03 07:59] LABS: Hematocrit 25.7 % (36.0-46.0); Mean Corpuscular Hemoglobin 28.8 pg (28.0-32.0); Mean Corpuscular Hgb Conc. 32.6 g/dL (32.0-36.0); Mean Corpuscular Volume 88.5 fL (80.0-100.0); Platelet Count (auto) 107 10^3/uL (140-450); Red Blood Cells 2.91 10^6/uL (4.0-5.20); White Blood Cell 11.7 10^3/uL (4.4-10.8)
[2018-03-03] MEDS ORDERED: VANCOMYCIN PER PHARMACY 0 MG IV SCH (08:00)
[2018-03-03 08:02] LABS: Basophils % (manual) 0 (0.0-2.0); Blast Cells 0; Metamyelocytes % 0; Myelocytes % 0; Promyelocytes % 0; Reactive Lymphocytes 0
[2018-03-03] MEDS: PHENYLEPHRINE INJ 20 MG in D5W 5% 250 ML IV SCH ×2 (08:03→15:12)
[2018-03-03] MEDS ORDERED: VANCOMYCIN 1GM/250ML 250 ML IV ONE (08:15)
[2018-03-03 08:16] LABS: Albumin 1.7 g/dL (3.4-5.0); BUN/Creatinine Ratio 23.4; Bilirubin, Total 2.2 mg/dL (0.2-1.0); Calcium 6.4 mg/dL (8.5-10.1); Total Protein 6.3 g/dL (6.4-8.2)
[2018-03-03 08:26] LABS: Potassium 2.9 mmol/L (3.5-5.1)
[2018-03-03] MEDS ORDERED: POTASSIUM EFFERVESENT TAB 25 MEQ PO ONE (08:45)
[2018-03-03] MEDS: SODIUM CHLORIDE 0.9% 1,000 ML IV SCH ×2 (08:46→18:21)
[2018-03-03] MEDS: ENOXAPARIN SOD 40 MG/0.4 ML SYRINGE SC SCH (08:46)
[2018-03-03] MEDS: PANTOPRAZOLE 40 MG/10 ML VIAL IV SCH ×2 (08:46→21:58)
[2018-03-03] MEDS: cefTRIAXone 1GM/10ml IVPUSH 10 ML IV SCH (08:46)
[2018-03-03 10:03] LABS: Band Neutrophils % (manual) 6; Eosinophils % (manual) 2 (0-7); Lymphocytes % (manual) 15 (10.0-50.0); Monocytes % (manual) 20 (0-12)
[2018-03-03] MEDS: PROPOFOL 100 ML IV SCH (10:15)
[2018-03-03] MEDS: MIDAZOLAM DRIP 50 mg/50mL 50 ML IV SCH ×3 (12:30→23:40)
[2018-03-03] MEDS: PHENYLEPHRINE INJ 20 MG in SODIUM CHL 0.9% 250 ML IV SCH ×2 (15:27→23:50)
[2018-03-03] MEDS: NOREPINEPHRINE 8 MG/250ML KIT 250 ML IV SCH ×2 (16:22→22:15)
[2018-03-03] MEDS ORDERED: NOREPINEPHRINE 8 MG/250ML KIT 250 ML IV ONE (16:22)
[2018-03-03] MEDS ORDERED: SODIUM CHLORIDE 0.9% 1,000 ML IV ONE (17:15)
[2018-03-03] MEDS: fentaNYL Drip 2500mCg/250mlNS 250 ML IV SCH (23:21)
[2018-03-04] VITALS (17 sets, daily range): BP systolic 93–122; BP diastolic 57–69
[2018-03-04] MEDS: LACTULOSE 20Gm/30ML SOLN NG SCH ×4 (02:06→14:27)
[2018-03-04] MEDS ORDERED: FUROSEMIDE 20 MG/2 ML VIAL IV ONE (03:00)
[2018-03-04] MEDS: SODIUM CHLORIDE 0.9% 1,000 ML IV SCH ×2 (05:05→15:31)
[2018-03-04] MEDS: InsuLIN REG 1unit/0.01ml Soln (100units/ml) SC SCH ×4 (06:00→23:54)
[2018-03-04] MEDS: ACCU-CHEK COMFORT CURVE STRIP VI SCH ×4 (06:18→23:54)
[2018-03-04 06:47] LABS: Hematocrit 31.6 % (36.0-46.0); Hemoglobin 9.9 g/dL (12.2-16.2); Mean Corpuscular Hemoglobin 29.9 pg (28.0-32.0); Mean Corpuscular Hgb Conc. 31.5 g/dL (32.0-36.0); Platelet Count (auto) 97 10^3/uL (140-450); Red Blood Cells 3.32 10^6/uL (4.0-5.20); White Blood Cell 15.4 10^3/uL (4.4-10.8)
[2018-03-04 07:05] LABS: Red Cell Distribution Width 22.2 % (11.8-14.3)
[2018-03-04 07:08] LABS: Basophils % (manual) 0 (0.0-2.0); Blast Cells 0; Myelocytes % 0; Promyelocytes % 0; Reactive Lymphocytes 0
[2018-03-04 07:20] LABS: Albumin 1.8 g/dL (3.4-5.0); BUN/Creatinine Ratio 17.7; Bilirubin, Total 2.4 mg/dL (0.2-1.0); Calcium 6.6 mg/dL (8.5-10.1); Potassium 4.1 mmol/L (3.5-5.1); Total Protein 6.8 g/dL (6.4-8.2)
[2018-03-04] MEDS: MIDAZOLAM DRIP 50 mg/50mL 50 ML IV SCH ×2 (08:12→17:13)
[2018-03-04] MEDS ORDERED: VANCOMYCIN 750 MG in D5W 5% 250 ML IV SCH (09:00)
[2018-03-04] MEDS: PANTOPRAZOLE 40 MG/10 ML VIAL IV SCH ×2 (09:07→21:53)
[2018-03-04] MEDS: cefTRIAXone 1GM/10ml IVPUSH 10 ML IV SCH (09:07)
[2018-03-04 10:42] LABS: Band Neutrophils % (manual) 8; Eosinophils % (manual) 1 (0-7); Lymphocytes % (manual) 6 (10.0-50.0); Metamyelocytes % 1; Monocytes % (manual) 6 (0-12)
[2018-03-04] MEDS ORDERED: metroNIDAZOLE 500MG/100ML 100 ML IV ONE (12:30)
[2018-03-04] MEDS: PROPOFOL 100 ML IV SCH (14:49)
[2018-03-04] MEDS ORDERED: RIFAXIMIN 550 MG TAB PO ONE (15:00)
[2018-03-04] MEDS ORDERED: VANCOMYCIN HCL 125MG/5ML ORAL SOL PO ONE (15:15)
[2018-03-04] MEDS: NOREPINEPHRINE 8 MG/250ML KIT 250 ML IV SCH (17:13)
[2018-03-04] MEDS ORDERED: LACTULOSE 20Gm/30ML SOLN NG SCH (18:00)
[2018-03-04] MEDS: VANCOMYCIN HCL 125MG/5ML ORAL SOL PO SCH ×2 (18:50→23:49)
[2018-03-04 19:09] LABS: Hematocrit 32.1 % (36.0-46.0); Hemoglobin 9.8 g/dL (12.2-16.2)
[2018-03-04] MEDS: POTASSIUM EFFERVESENT TAB 25 MEQ GT SCH (20:23)
[2018-03-04] MEDS: metroNIDAZOLE 500MG/100ML 100 ML IV SCH (21:01)
[2018-03-04] MEDS: RIFAXIMIN 550 MG TAB PO SCH (21:54)
[2018-03-05] VITALS (84 sets, daily range): BP systolic 83–139; BP diastolic 49–81
[2018-03-05] MEDS: SODIUM CHLORIDE 0.9% 1,000 ML IV SCH ×2 (02:34→14:10)
[2018-03-05] MEDS: metroNIDAZOLE 500MG/100ML 100 ML IV SCH ×3 (05:23→20:46)
[2018-03-05] MEDS: VANCOMYCIN HCL 125MG/5ML ORAL SOL PO SCH ×4 (05:23→23:54)
[2018-03-05] MEDS: InsuLIN REG 1unit/0.01ml Soln (100units/ml) SC SCH ×4 (05:24→23:54)
[2018-03-05] MEDS: ACCU-CHEK COMFORT CURVE STRIP VI SCH ×4 (05:24→23:54)
[2018-03-05 07:17] LABS: Hematocrit 30.7 % (36.0-46.0); Hemoglobin 9.9 g/dL (12.2-16.2); Mean Corpuscular Hemoglobin 28.7 pg (28.0-32.0); Mean Corpuscular Hgb Conc. 32.4 g/dL (32.0-36.0); Mean Corpuscular Volume 88.6 fL (80.0-100.0); Platelet Count (auto) 91 10^3/uL (140-450); Red Blood Cells 3.47 10^6/uL (4.0-5.20); White Blood Cell 12.2 10^3/uL (4.4-10.8)
[2018-03-05 07:37] LABS: Albumin 1.6 g/dL (3.4-5.0); BUN/Creatinine Ratio 23.9; Bilirubin, Total 1.6 mg/dL (0.2-1.0); Calcium 6.9 mg/dL (8.5-10.1); INR 1.53 (0.9-1.15); Magnesium 2.2 mg/dL (1.6-2.6); Potassium 3.3 mmol/L (3.5-5.1); Total Protein 6.1 g/dL (6.4-8.2)
[2018-03-05 08:34] LABS: Basophils % (manual) 0 (0.0-2.0); Blast Cells 0; Metamyelocytes % 0; Myelocytes % 0; Promyelocytes % 0; Reactive Lymphocytes 0
[2018-03-05 08:37] LABS: Band Neutrophils % (manual) 8; Eosinophils % (manual) 4 (0-7); Lymphocytes % (manual) 5 (10.0-50.0); Monocytes % (manual) 12 (0-12)
[2018-03-05] MEDS: POTASSIUM EFFERVESENT TAB 25 MEQ GT SCH (10:54)
[2018-03-05] MEDS: PANTOPRAZOLE 40 MG/10 ML VIAL IV SCH ×2 (10:55→21:46)
[2018-03-05] MEDS: RIFAXIMIN 550 MG TAB PO SCH ×2 (10:55→21:46)
[2018-03-05] MEDS ORDERED: FUROSEMIDE 40 MG/4 ML VIAL IV ONE (11:00)
[2018-03-05] MEDS: PROPOFOL 100 ML IV SCH (14:10)
[2018-03-05] MEDS: MIDAZOLAM DRIP 50 mg/50mL 50 ML IV SCH ×2 (14:11→22:46)
[2018-03-05] MEDS ORDERED: SODIUM CHLORIDE 0.9% 1,000 ML IV SCH (14:15)
[2018-03-05] MEDS: POTASSIUM CHL 20MEQ/100ML 100 ML IV SCH ×2 (14:30→15:08)
[2018-03-05] MEDS: NOREPINEPHRINE 8 MG/250ML KIT 250 ML IV SCH (16:27)
[2018-03-05] MEDS ORDERED: methylPREDNISolone SOD SUCC 125 MG/2 ML VL IV ONE (17:00)
[2018-03-05] MEDS ORDERED: diphenhdrAMINE HCL 50 MG/1 ML VL IV PRN (17:00)
[2018-03-05] MEDS ORDERED: diphenhdrAMINE HCL 12.5 MG/5 ML UD PO PRN (17:15)
[2018-03-05] MEDS ORDERED: ALBUMIN 25% 100 ML IV ONE (18:30)
[2018-03-05] MEDS ORDERED: THIAMINE INJ 100 MG, MULTIPLE VITAMIN 10 ML, FOLIC ACID 1 MG, MAGNESIUM SULF SDV 50% 8 ... IV ONE ×5 (20:00)
[2018-03-05] MEDS: ALBUTEROL SULF 2.5 MG/0.5ML(0.5%) NEB SOLN NEB PRN (22:21)
[2018-03-05] MEDS: ACETYLCYSTEINE 20%(200MG/ML) SOL 4ML NEB SCH (22:21)
[2018-03-06] VITALS (98 sets, daily range): BP systolic 89–129; BP diastolic 43–79
[2018-03-06] MEDS: ACETYLCYSTEINE 20%(200MG/ML) SOL 4ML NEB SCH ×6 (02:29→22:32)
[2018-03-06] MEDS: ALBUTEROL SULF 2.5 MG/0.5ML(0.5%) NEB SOLN NEB PRN ×6 (02:30→22:32)
[2018-03-06 04:07] LABS: Hematocrit 32.8 % (36.0-46.0); Hemoglobin 10.5 g/dL (12.2-16.2); Mean Corpuscular Hgb Conc. 31.9 g/dL (32.0-36.0); Mean Corpuscular Volume 87.6 fL (80.0-100.0); Platelet Count (auto) 95 10^3/uL (140-450); Red Blood Cells 3.74 10^6/uL (4.0-5.20); White Blood Cell 9.1 10^3/uL (4.4-10.8)
[2018-03-06 04:17] LABS: Red Cell Distribution Width 20.9 % (11.8-14.3)
[2018-03-06 04:18] LABS: Basophils % (manual) 0 (0.0-2.0); Blast Cells 0; Eosinophils % (manual) 0 (0-7); Metamyelocytes % 0; Myelocytes % 0; Promyelocytes % 0; Reactive Lymphocytes 0
[2018-03-06 04:28] LABS: Calcium 7.3 mg/dL (8.5-10.1); Potassium 4.2 mmol/L (3.5-5.1)
[2018-03-06 04:32] LABS: Albumin 2.1 g/dL (3.4-5.0); BUN/Creatinine Ratio 22.4
[2018-03-06] MEDS: metroNIDAZOLE 500MG/100ML 100 ML IV SCH ×3 (04:32→21:00)
[2018-03-06 04:34] LABS: Bilirubin, Total 1.9 mg/dL (0.2-1.0); Total Protein 6.4 g/dL (6.4-8.2)
[2018-03-06 04:57] LABS: Band Neutrophils % (manual) 2; Lymphocytes % (manual) 14 (10.0-50.0); Monocytes % (manual) 4 (0-12)
[2018-03-06] MEDS: InsuLIN REG 1unit/0.01ml Soln (100units/ml) SC SCH ×4 (05:33→23:28)
[2018-03-06] MEDS: ACCU-CHEK COMFORT CURVE STRIP VI SCH ×4 (05:33→23:28)
[2018-03-06] MEDS: VANCOMYCIN HCL 125MG/5ML ORAL SOL PO SCH ×4 (05:33→23:28)
[2018-03-06] MEDS: MIDAZOLAM DRIP 50 mg/50mL 50 ML IV SCH (06:48)
[2018-03-06] MEDS: PANTOPRAZOLE 40 MG/10 ML VIAL IV SCH ×2 (09:49→21:49)
[2018-03-06] MEDS: RIFAXIMIN 550 MG TAB PO SCH ×2 (09:49→21:49)
[2018-03-06] MEDS: POTASSIUM EFFERVESENT TAB 25 MEQ GT SCH (09:50)
[2018-03-06] MEDS ORDERED: FUROSEMIDE 40 MG/4 ML VIAL IV ONE (13:45)
[2018-03-06] MEDS ORDERED: methylPREDNISolone SOD SUCC 40 MG/ML VL IV ONE (13:45)
[2018-03-06] MEDS ORDERED: ALBUMIN 25% 100 ML IV ONE (13:45)
[2018-03-06] MEDS: NOREPINEPHRINE 8 MG/250ML KIT 250 ML IV SCH (16:15)
[2018-03-06] MEDS: methylPREDNISolone SOD SUCC 40 MG/ML VL IV SCH (21:49)
[2018-03-07] VITALS (79 sets, daily range): BP systolic 105–170; BP diastolic 40–85
[2018-03-07] MEDS: ALBUTEROL SULF 2.5 MG/0.5ML(0.5%) NEB SOLN NEB PRN ×6 (02:09→22:18)
[2018-03-07] MEDS: ACETYLCYSTEINE 20%(200MG/ML) SOL 4ML NEB SCH ×6 (02:09→22:18)
[2018-03-07 04:06] LABS: Hematocrit 27.8 % (36.0-46.0); Hemoglobin 9.4 g/dL (12.2-16.2); Mean Corpuscular Hemoglobin 29.4 pg (28.0-32.0); Mean Corpuscular Hgb Conc. 33.7 g/dL (32.0-36.0); Mean Corpuscular Volume 87.1 fL (80.0-100.0); Platelet Count (auto) 73 10^3/uL (140-450); Red Blood Cells 3.19 10^6/uL (4.0-5.20); White Blood Cell 10.8 10^3/uL (4.4-10.8)
[2018-03-07 04:12] LABS: Red Cell Distribution Width 20.8 % (11.8-14.3)
[2018-03-07 04:13] LABS: Basophils % (manual) 0 (0.0-2.0); Blast Cells 0; Eosinophils % (manual) 0 (0-7); Metamyelocytes % 0; Myelocytes % 0; Promyelocytes % 0; Reactive Lymphocytes 0
[2018-03-07 04:21] LABS: Albumin 2.2 g/dL (3.4-5.0); Calcium 7.3 mg/dL (8.5-10.1); Magnesium 2.3 mg/dL (1.6-2.6); Potassium 3.7 mmol/L (3.5-5.1)
[2018-03-07 04:23] LABS: Bilirubin, Total 1.8 mg/dL (0.2-1.0); Total Protein 6.3 g/dL (6.4-8.2)
[2018-03-07] MEDS: metroNIDAZOLE 500MG/100ML 100 ML IV SCH ×3 (04:39→21:00)
[2018-03-07 04:59] LABS: Band Neutrophils % (manual) 3; Lymphocytes % (manual) 10 (10.0-50.0); Monocytes % (manual) 9 (0-12)
[2018-03-07] MEDS: ACCU-CHEK COMFORT CURVE STRIP VI SCH ×3 (05:35→18:00)
[2018-03-07] MEDS: VANCOMYCIN HCL 125MG/5ML ORAL SOL PO SCH ×3 (05:35→18:00)
[2018-03-07] MEDS: InsuLIN REG 1unit/0.01ml Soln (100units/ml) SC SCH ×3 (05:35→18:00)
[2018-03-07] MEDS ORDERED: ENOXAPARIN SOD 30 MG/0.3 ML SYRINGE SC SCH (10:00)
[2018-03-07] MEDS: ENOXAPARIN SOD 30 MG/0.3 ML SYRINGE SC SCH (10:00)
[2018-03-07] MEDS: PANTOPRAZOLE 40 MG/10 ML VIAL IV SCH ×2 (10:37→22:25)
[2018-03-07] MEDS: methylPREDNISolone SOD SUCC 40 MG/ML VL IV SCH ×2 (10:38→22:29)
[2018-03-07] MEDS: RIFAXIMIN 550 MG TAB PO SCH ×2 (10:38→22:29)
[2018-03-07] MEDS ORDERED: FUROSEMIDE 40 MG/4 ML VIAL IV ONE (14:15)
[2018-03-07] MEDS ORDERED: POTASSIUM CHL 20MEQ/100ML 100 ML IV ONE (14:15)
[2018-03-07] MEDS ORDERED: ALBUMIN 25% 100 ML IV ONE (14:15)
[2018-03-07] MEDS ORDERED: PHYTONADIONE (VIT K)10 MG/ML 1ML VIAL SUBCUT ONE (14:15)
[2018-03-08] VITALS (75 sets, daily range): BP systolic 107–153; BP diastolic 57–106
[2018-03-08] MEDS: ALBUTEROL SULF 2.5 MG/0.5ML(0.5%) NEB SOLN NEB PRN ×6 (02:15→22:15)
[2018-03-08] MEDS: ACETYLCYSTEINE 20%(200MG/ML) SOL 4ML NEB SCH ×6 (02:15→22:15)
[2018-03-08 04:31] LABS: Hematocrit 30.3 % (36.0-46.0); Mean Corpuscular Hemoglobin 28.9 pg (28.0-32.0); Mean Corpuscular Hgb Conc. 33.1 g/dL (32.0-36.0); Mean Corpuscular Volume 87.3 fL (80.0-100.0); Platelet Count (auto) 86 10^3/uL (140-450); Red Blood Cells 3.47 10^6/uL (4.0-5.20); White Blood Cell 15.5 10^3/uL (4.4-10.8)
[2018-03-08 04:33] LABS: Red Cell Distribution Width 21.3 % (11.8-14.3)
[2018-03-08 04:34] LABS: Basophils % (manual) 0 (0.0-2.0); Blast Cells 0; Eosinophils % (manual) 0 (0-7); Myelocytes % 0; Promyelocytes % 0; Reactive Lymphocytes 0
[2018-03-08 04:37] LABS: INR 1.66 (0.9-1.15); Prothrombin Time 17.3 sec (9.27-12.13)
[2018-03-08 04:42] LABS: BUN/Creatinine Ratio 33.3; Calcium 7.6 mg/dL (8.5-10.1); Potassium 3.7 mmol/L (3.5-5.1)
[2018-03-08] MEDS: metroNIDAZOLE 500MG/100ML 100 ML IV SCH ×3 (05:00→20:55)
[2018-03-08 05:10] LABS: Band Neutrophils % (manual) 2; Lymphocytes % (manual) 6 (10.0-50.0); Metamyelocytes % 2; Monocytes % (manual) 6 (0-12)
[2018-03-08] MEDS: ACCU-CHEK COMFORT CURVE STRIP VI SCH ×5 (06:00→23:34)
[2018-03-08] MEDS: InsuLIN REG 1unit/0.01ml Soln (100units/ml) SC SCH ×5 (06:00→23:35)
[2018-03-08] MEDS: VANCOMYCIN HCL 125MG/5ML ORAL SOL PO SCH ×5 (06:00→23:35)
[2018-03-08] MEDS: PANTOPRAZOLE 40 MG/10 ML VIAL IV SCH ×2 (09:54→22:13)
[2018-03-08] MEDS: methylPREDNISolone SOD SUCC 40 MG/ML VL IV SCH ×2 (09:54→22:14)
[2018-03-08] MEDS: RIFAXIMIN 550 MG TAB PO SCH ×2 (09:54→22:25)
[2018-03-08] MEDS: ENOXAPARIN SOD 30 MG/0.3 ML SYRINGE SC SCH (09:55)
[2018-03-08] MEDS ORDERED: POTASSIUM CHL 20MEQ/100ML 100 ML IV ONE (11:30)
[2018-03-08] MEDS ORDERED: PHYTONADIONE (VIT K)10 MG/ML 1ML VIAL SUBCUT ONE (11:30)
[2018-03-08] MEDS ORDERED: FUROSEMIDE 40 MG/4 ML VIAL IV ONE (11:30)
[2018-03-08] MEDS ORDERED: ALBUMIN 25% 100 ML IV ONE (11:30)
[2018-03-08] MEDS: LORazepam 2MG/ML-1ML VIAL IV PRN (23:36)
[2018-03-09] VITALS (105 sets, daily range): BP systolic 127–159; BP diastolic 64–94
[2018-03-09] MEDS: ACETYLCYSTEINE 20%(200MG/ML) SOL 4ML NEB SCH ×6 (02:06→23:08)
[2018-03-09] MEDS: ALBUTEROL SULF 2.5 MG/0.5ML(0.5%) NEB SOLN NEB PRN ×3 (02:06→09:42)
[2018-03-09 04:11] LABS: Hematocrit 30.1 % (36.0-46.0); Hemoglobin 9.8 g/dL (12.2-16.2); Mean Corpuscular Hemoglobin 28.3 pg (28.0-32.0); Mean Corpuscular Hgb Conc. 32.7 g/dL (32.0-36.0); Mean Corpuscular Volume 86.7 fL (80.0-100.0); Platelet Count (auto) 100 10^3/uL (140-450); Red Blood Cells 3.47 10^6/uL (4.0-5.20)
[2018-03-09 04:22] LABS: Basophils % (manual) 0 (0.0-2.0); Blast Cells 0; Eosinophils % (manual) 0 (0-7); Myelocytes % 0; Promyelocytes % 0; Reactive Lymphocytes 0
[2018-03-09 04:28] LABS: INR 1.72 (0.9-1.15); Prothrombin Time 17.8 sec (9.27-12.13)
[2018-03-09 04:35] LABS: BUN/Creatinine Ratio 34.2; Calcium 7.8 mg/dL (8.5-10.1); Potassium 3.2 mmol/L (3.5-5.1)
[2018-03-09] MEDS: metroNIDAZOLE 500MG/100ML 100 ML IV SCH ×3 (05:05→20:50)
[2018-03-09 05:50] LABS: Band Neutrophils % (manual) 5; Lymphocytes % (manual) 9 (10.0-50.0); Metamyelocytes % 1; Monocytes % (manual) 10 (0-12)
[2018-03-09] MEDS: InsuLIN REG 1unit/0.01ml Soln (100units/ml) SC SCH ×3 (06:00→18:00)
[2018-03-09] MEDS: VANCOMYCIN HCL 125MG/5ML ORAL SOL PO SCH ×3 (06:24→18:44)
[2018-03-09] MEDS: ACCU-CHEK COMFORT CURVE STRIP VI SCH ×3 (06:27→18:00)
[2018-03-09] MEDS: methylPREDNISolone SOD SUCC 40 MG/ML VL IV SCH (09:46)
[2018-03-09] MEDS: ENOXAPARIN SOD 30 MG/0.3 ML SYRINGE SC SCH (09:46)
[2018-03-09] MEDS: RIFAXIMIN 550 MG TAB PO SCH ×2 (09:46→22:17)
[2018-03-09] MEDS ORDERED: FUROSEMIDE 40 MG/4 ML VIAL IV ONE (11:15)
[2018-03-09] MEDS ORDERED: POTASSIUM CHL 20 Meq TABLET PO ONE (11:15)
[2018-03-09] MEDS: PANTOPRAZOLE 40 MG/10 ML VIAL IV SCH ×2 (11:42→22:17)
[2018-03-09] MEDS: SPIRONOLACTONE 25 MG TAB PO SCH (11:43)
[2018-03-09] MEDS: LORazepam 2MG/ML-1ML VIAL IV PRN (14:37)
[2018-03-09] MEDS: IPRATROPIUM BROM 0.5 MG/2.5ML INH SOL NEB SCH ×3 (14:41→23:08)
[2018-03-09] MEDS: ALBUTEROL SULF 2.5 MG/0.5ML(0.5%) NEB SOLN NEB SCH ×3 (14:41→23:08)
[2018-03-09] MEDS: FUROSEMIDE 40 MG/4 ML VIAL IV SCH (18:44)
[2018-03-09] MEDS ORDERED: POTASSIUM CHL 20 Meq TABLET PO SCH (22:00)
[2018-03-09] MEDS: BUDESONIDE (INHALATION) 0.5 MG/2 ML NEB NEB SCH (23:08)
[2018-03-10] VITALS (84 sets, daily range): BP systolic 110–155; BP diastolic 41–89
[2018-03-10] MEDS: ACCU-CHEK COMFORT CURVE STRIP VI SCH ×4 (00:29→17:56)
[2018-03-10 04:08] LABS: Basophils # (auto) 0 uL; Basophils % (auto) 0.2 % (0.0-2.0); Eosinophils # (auto) 0.1 uL; Eosinophils % (auto) 0.5 % (0.0-7.0); Hematocrit 32.7 % (36.0-46.0); Hemoglobin 10.8 g/dL (12.2-16.2); Lymphocytes # (auto) 2.3 uL; Lymphocytes % (auto) 12.2 % (10.0-50.0); Mean Corpuscular Hemoglobin 28.4 pg (28.0-32.0); Mean Corpuscular Volume 86.2 fL (80.0-100.0); Neutrophils # (auto) 13.5 uL; Neutrophils % (auto) 71.1 % (37.0-80.0); Nucleated Red Blood Cells % 0.1 %; Platelet Count (auto) 113 10^3/uL (140-450)
[2018-03-10 04:11] LABS: Red Cell Distribution Width 20.9 % (11.8-14.3)
[2018-03-10 04:27] LABS: Albumin 2.8 g/dL (3.4-5.0); BUN/Creatinine Ratio 30.4; Bilirubin, Total 3.8 mg/dL (0.2-1.0); Calcium 7.6 mg/dL (8.5-10.1); Total Protein 6.9 g/dL (6.4-8.2)
[2018-03-10 04:29] LABS: Potassium 2.9 mmol/L (3.5-5.1)
[2018-03-10] MEDS: metroNIDAZOLE 500MG/100ML 100 ML IV SCH ×3 (05:00→21:00)
[2018-03-10] MEDS ORDERED: POTASSIUM CHL 20MEQ/100ML 200 ML IV ONE (05:52)
[2018-03-10] MEDS: InsuLIN REG 1unit/0.01ml Soln (100units/ml) SC SCH ×4 (06:00→17:59)
[2018-03-10] MEDS: IPRATROPIUM BROM 0.5 MG/2.5ML INH SOL NEB SCH ×5 (06:12→22:09)
[2018-03-10] MEDS: ALBUTEROL SULF 2.5 MG/0.5ML(0.5%) NEB SOLN NEB SCH ×5 (06:12→22:09)
[2018-03-10] MEDS: ACETYLCYSTEINE 20%(200MG/ML) SOL 4ML NEB SCH ×5 (06:12→22:10)
[2018-03-10] MEDS: BUDESONIDE (INHALATION) 0.5 MG/2 ML NEB NEB SCH ×2 (06:14→22:09)
[2018-03-10] MEDS: VANCOMYCIN HCL 125MG/5ML ORAL SOL PO SCH ×4 (06:28→17:56)
[2018-03-10] MEDS: POTASSIUM CHL 20MEQ/100ML 100 ML IV SCH ×2 (06:28→08:19)
[2018-03-10] MEDS: FUROSEMIDE 40 MG/4 ML VIAL IV SCH ×2 (06:28→17:56)
[2018-03-10] MEDS ORDERED: POTASSIUM EFFERVESENT TAB 25 MEQ ONE (09:34)
[2018-03-10] MEDS: PANTOPRAZOLE 40 MG/10 ML VIAL IV SCH ×2 (09:42→22:00)
[2018-03-10] MEDS: ENOXAPARIN SOD 30 MG/0.3 ML SYRINGE SC SCH (09:43)
[2018-03-10] MEDS: SPIRONOLACTONE 25 MG TAB PO SCH (09:43)
[2018-03-10] MEDS: RIFAXIMIN 550 MG TAB PO SCH ×2 (09:43→22:00)
[2018-03-10] MEDS: ACETAMINOPHEN 650 mg PER 20 mL UD PO PRN ×2 (09:43→20:22)
[2018-03-10] MEDS: POTASSIUM EFFERVESENT TAB 25 MEQ GT SCH ×2 (09:56→22:00)
[2018-03-10 15:35] LABS: INR 1.67 (0.9-1.15); Partial Thromboplastin Time 38.5 sec (23.78-33.04); Prothrombin Time 17.4 sec (9.27-12.13)
[2018-03-11] VITALS (95 sets, daily range): BP systolic 98–149; BP diastolic 50–104
[2018-03-11] MEDS: ACCU-CHEK COMFORT CURVE STRIP VI SCH ×5 (00:19→23:22)
[2018-03-11] MEDS: VANCOMYCIN HCL 125MG/5ML ORAL SOL PO SCH ×5 (00:19→23:23)
[2018-03-11] MEDS: ACETYLCYSTEINE 20%(200MG/ML) SOL 4ML NEB SCH ×6 (00:54→22:07)
[2018-03-11] MEDS: ALBUTEROL SULF 2.5 MG/0.5ML(0.5%) NEB SOLN NEB SCH ×6 (00:54→22:07)
[2018-03-11] MEDS: IPRATROPIUM BROM 0.5 MG/2.5ML INH SOL NEB SCH ×6 (00:54→22:07)
[2018-03-11 03:47] LABS: Basophils # (auto) 0.1 uL; Basophils % (auto) 0.7 % (0.0-2.0); Eosinophils # (auto) 0.2 uL; Eosinophils % (auto) 0.9 % (0.0-7.0); Hematocrit 28.8 % (36.0-46.0); Hemoglobin 9.3 g/dL (12.2-16.2); Lymphocytes # (auto) 1.4 uL; Lymphocytes % (auto) 8.7 % (10.0-50.0); Mean Corpuscular Hemoglobin 28.4 pg (28.0-32.0); Mean Corpuscular Hgb Conc. 32.4 g/dL (32.0-36.0); Mean Corpuscular Volume 87.7 fL (80.0-100.0); Monocytes % (auto) 12.6 % (0.0-12.0); Neutrophils # (auto) 12.5 uL; Neutrophils % (auto) 77.1 % (37.0-80.0); Platelet Count (auto) 94 10^3/uL (140-450); Red Blood Cells 3.28 10^6/uL (4.0-5.20); White Blood Cell 16.2 10^3/uL (4.4-10.8)
[2018-03-11 03:49] LABS: Red Cell Distribution Width 20.9 % (11.8-14.3)
[2018-03-11 04:04] LABS: Albumin 2.7 g/dL (3.4-5.0); BUN/Creatinine Ratio 23.8; Calcium 7.5 mg/dL (8.5-10.1); Potassium 3.3 mmol/L (3.5-5.1)
[2018-03-11 04:07] LABS: Bilirubin, Total 4.1 mg/dL (0.2-1.0); INR 1.41 (0.9-1.15); Partial Thromboplastin Time 32.4 sec (23.78-33.04); Prothrombin Time 14.8 sec (9.27-12.13); Total Protein 6.8 g/dL (6.4-8.2)
[2018-03-11] MEDS: metroNIDAZOLE 500MG/100ML 100 ML IV SCH ×3 (05:00→21:32)
[2018-03-11] MEDS: InsuLIN REG 1unit/0.01ml Soln (100units/ml) SC SCH ×5 (06:00→23:22)
[2018-03-11] MEDS: FUROSEMIDE 40 MG/4 ML VIAL IV SCH ×2 (06:00→17:21)
[2018-03-11] MEDS: BUDESONIDE (INHALATION) 0.5 MG/2 ML NEB NEB SCH ×2 (06:03→22:07)
[2018-03-11] MEDS ORDERED: POTASSIUM CHL 20MEQ/100ML 100 ML IV ONE ×2 (06:51→07:00)
[2018-03-11] MEDS: PANTOPRAZOLE 40 MG/10 ML VIAL IV SCH ×2 (10:27→21:32)
[2018-03-11] MEDS: ENOXAPARIN SOD 30 MG/0.3 ML SYRINGE SC SCH (10:31)
[2018-03-11] MEDS: POTASSIUM EFFERVESENT TAB 25 MEQ GT SCH ×2 (10:32→21:32)
[2018-03-11] MEDS: SPIRONOLACTONE 25 MG TAB PO SCH (10:32)
[2018-03-11] MEDS: RIFAXIMIN 550 MG TAB PO SCH ×2 (10:32→21:39)
[2018-03-11] MEDS: ACETAMINOPHEN 650 mg PER 20 mL UD PO PRN (20:18)
[2018-03-12] VITALS (87 sets, daily range): BP systolic 89–157; BP diastolic 48–109
[2018-03-12] MEDS: ALBUTEROL SULF 2.5 MG/0.5ML(0.5%) NEB SOLN NEB SCH ×6 (02:25→22:27)
[2018-03-12] MEDS: IPRATROPIUM BROM 0.5 MG/2.5ML INH SOL NEB SCH ×6 (02:25→22:27)
[2018-03-12] MEDS: ACETYLCYSTEINE 20%(200MG/ML) SOL 4ML NEB SCH ×6 (02:25→22:27)
[2018-03-12] MEDS ORDERED: MORPHINE SULFATE 4 MG/ML SYR/VIAL IV ONE (04:15)
[2018-03-12] MEDS: metroNIDAZOLE 500MG/100ML 100 ML IV SCH ×3 (04:58→20:34)
[2018-03-12] MEDS: FUROSEMIDE 40 MG/4 ML VIAL IV SCH ×2 (05:32→18:04)
[2018-03-12] MEDS: ACCU-CHEK COMFORT CURVE STRIP VI SCH ×3 (05:32→18:05)
[2018-03-12] MEDS: VANCOMYCIN HCL 125MG/5ML ORAL SOL PO SCH ×2 (05:32→18:05)
[2018-03-12] MEDS: InsuLIN REG 1unit/0.01ml Soln (100units/ml) SC SCH ×3 (05:32→18:00)
[2018-03-12 05:33] LABS: Basophils # (auto) 0 uL; Basophils % (auto) 0.2 % (0.0-2.0); Eosinophils # (auto) 0.2 uL; Eosinophils % (auto) 1.4 % (0.0-7.0); Hematocrit 28.6 % (36.0-46.0); Hemoglobin 9.4 g/dL (12.2-16.2); Lymphocytes % (auto) 7.5 % (10.0-50.0); Mean Corpuscular Hemoglobin 29.3 pg (28.0-32.0); Mean Corpuscular Hgb Conc. 32.8 g/dL (32.0-36.0); Mean Corpuscular Volume 89.4 fL (80.0-100.0); Monocytes # (auto) 1.9 uL; Monocytes % (auto) 13.7 % (0.0-12.0); Neutrophils # (auto) 10.4 uL; Neutrophils % (auto) 77.2 % (37.0-80.0); Nucleated Red Blood Cells % 0.1 %; White Blood Cell 13.5 10^3/uL (4.4-10.8)
[2018-03-12 05:34] LABS: Red Cell Distribution Width 20.2 % (11.8-14.3)
[2018-03-12 05:35] LABS: Platelet Count (auto) 97 10^3/uL (140-450)
[2018-03-12] MEDS: BUDESONIDE (INHALATION) 0.5 MG/2 ML NEB NEB SCH ×2 (05:46→18:51)
[2018-03-12 05:49] LABS: BUN/Creatinine Ratio 29.3; Calcium 7.7 mg/dL (8.5-10.1); Potassium 3.6 mmol/L (3.5-5.1)
[2018-03-12] MEDS: LORazepam 2MG/ML-1ML VIAL IV PRN ×2 (08:55→20:34)
[2018-03-12] MEDS: PANTOPRAZOLE 40 MG/10 ML VIAL IV SCH ×2 (10:08→21:43)
[2018-03-12] MEDS: POTASSIUM EFFERVESENT TAB 25 MEQ GT SCH ×2 (10:08→21:43)
[2018-03-12] MEDS: SPIRONOLACTONE 25 MG TAB PO SCH (10:08)
[2018-03-12] MEDS: RIFAXIMIN 550 MG TAB PO SCH ×2 (10:08→21:42)
[2018-03-12] MEDS: ENOXAPARIN SOD 30 MG/0.3 ML SYRINGE SC SCH (10:08)
[2018-03-12] MEDS: fentaNYL Drip 2500mCg/250mlNS 250 ML IV SCH (10:09)
[2018-03-13] VITALS (77 sets, daily range): BP systolic 90–160; BP diastolic 48–94
[2018-03-13] MEDS: ACCU-CHEK COMFORT CURVE STRIP VI SCH ×4 (00:30→17:33)
[2018-03-13] MEDS: InsuLIN REG 1unit/0.01ml Soln (100units/ml) SC SCH ×4 (00:30→17:33)
[2018-03-13] MEDS: VANCOMYCIN HCL 125MG/5ML ORAL SOL PO SCH ×4 (00:30→17:33)
[2018-03-13] MEDS: IPRATROPIUM BROM 0.5 MG/2.5ML INH SOL NEB SCH ×6 (02:32→21:49)
[2018-03-13] MEDS: ACETYLCYSTEINE 20%(200MG/ML) SOL 4ML NEB SCH ×6 (02:32→21:49)
[2018-03-13] MEDS: ALBUTEROL SULF 2.5 MG/0.5ML(0.5%) NEB SOLN NEB SCH ×7 (02:32→22:00)
[2018-03-13] MEDS: metroNIDAZOLE 500MG/100ML 100 ML IV SCH ×3 (05:30→20:30)
[2018-03-13] MEDS: FUROSEMIDE 40 MG/4 ML VIAL IV SCH ×2 (05:31→17:28)
[2018-03-13] MEDS: BUDESONIDE (INHALATION) 0.5 MG/2 ML NEB NEB SCH ×2 (05:50→21:49)
[2018-03-13 08:50] LABS: Basophils # (auto) 0 uL; Basophils % (auto) 0.3 % (0.0-2.0); Eosinophils # (auto) 0.2 uL; Eosinophils % (auto) 1.6 % (0.0-7.0); Hematocrit 29.5 % (36.0-46.0); Hemoglobin 9.5 g/dL (12.2-16.2); Lymphocytes # (auto) 1.2 uL; Lymphocytes % (auto) 9.6 % (10.0-50.0); Mean Corpuscular Hemoglobin 28.9 pg (28.0-32.0); Mean Corpuscular Hgb Conc. 32.3 g/dL (32.0-36.0); Mean Corpuscular Volume 89.6 fL (80.0-100.0); Monocytes % (auto) 15.7 % (0.0-12.0); Neutrophils # (auto) 9.4 uL; Neutrophils % (auto) 72.8 % (37.0-80.0); Platelet Count (auto) 109 10^3/uL (140-450); Red Blood Cells 3.29 10^6/uL (4.0-5.20)
[2018-03-13 09:07] LABS: Red Cell Distribution Width 20.9 % (11.8-14.3)
[2018-03-13] MEDS: SPIRONOLACTONE 25 MG TAB PO SCH (10:06)
[2018-03-13] MEDS: POTASSIUM EFFERVESENT TAB 25 MEQ GT SCH ×2 (10:06→22:09)
[2018-03-13] MEDS: RIFAXIMIN 550 MG TAB PO SCH ×2 (10:06→22:08)
[2018-03-13] MEDS: PANTOPRAZOLE 40 MG/10 ML VIAL IV SCH ×2 (10:06→22:08)
[2018-03-13] MEDS: ENOXAPARIN SOD 30 MG/0.3 ML SYRINGE SC SCH (10:07)
[2018-03-13] MEDS: LORazepam 2MG/ML-1ML VIAL IV PRN (17:28)
[2018-03-13] MEDS: fentaNYL Drip 2500mCg/250mlNS 250 ML IV SCH (19:41)
[2018-03-14] VITALS (21 sets, daily range): BP systolic 12–153; BP diastolic 43–104
[2018-03-14] MEDS: VANCOMYCIN HCL 125MG/5ML ORAL SOL PO SCH ×5 (00:04→23:40)
[2018-03-14] MEDS: ACCU-CHEK COMFORT CURVE STRIP VI SCH ×5 (00:04→23:41)
[2018-03-14] MEDS: IPRATROPIUM BROM 0.5 MG/2.5ML INH SOL NEB SCH ×6 (02:15→22:12)
[2018-03-14] MEDS: ALBUTEROL SULF 2.5 MG/0.5ML(0.5%) NEB SOLN NEB SCH ×6 (02:16→22:12)
[2018-03-14] MEDS: ACETYLCYSTEINE 20%(200MG/ML) SOL 4ML NEB SCH ×6 (02:16→22:13)
[2018-03-14 03:50] LABS: Hemoglobin 9.6 g/dL (12.2-16.2); Mean Corpuscular Hemoglobin 28.7 pg (28.0-32.0); Mean Corpuscular Volume 89.5 fL (80.0-100.0); Platelet Count (auto) 127 10^3/uL (140-450); Red Blood Cells 3.36 10^6/uL (4.0-5.20); White Blood Cell 15.4 10^3/uL (4.4-10.8)
[2018-03-14 03:54] LABS: Red Cell Distribution Width 21.2 % (11.8-14.3)
[2018-03-14 03:56] LABS: Band Neutrophils % (manual) 0; Basophils % (manual) 0 (0.0-2.0); Blast Cells 0; Eosinophils % (manual) 0 (0-7); Metamyelocytes % 0; Myelocytes % 0; Promyelocytes % 0; Reactive Lymphocytes 0
[2018-03-14 04:08] LABS: Albumin 2.7 g/dL (3.4-5.0); BUN/Creatinine Ratio 26.2; Calcium 8.2 mg/dL (8.5-10.1); Potassium 3.7 mmol/L (3.5-5.1)
[2018-03-14 04:11] LABS: Bilirubin, Total 3.9 mg/dL (0.2-1.0); Total Protein 7.3 g/dL (6.4-8.2)
[2018-03-14 04:50] LABS: Lymphocytes % (manual) 6 (10.0-50.0); Monocytes % (manual) 13 (0-12)
[2018-03-14] MEDS: metroNIDAZOLE 500MG/100ML 100 ML IV SCH ×3 (05:00→20:41)
[2018-03-14] MEDS: FUROSEMIDE 40 MG/4 ML VIAL IV SCH ×2 (05:55→17:46)
[2018-03-14] MEDS: LORazepam 2MG/ML-1ML VIAL IV PRN ×2 (05:56→17:47)
[2018-03-14] MEDS: InsuLIN REG 1unit/0.01ml Soln (100units/ml) SC SCH ×5 (05:56→23:41)
[2018-03-14] MEDS: BUDESONIDE (INHALATION) 0.5 MG/2 ML NEB NEB SCH ×2 (07:39→22:12)
[2018-03-14] MEDS: PANTOPRAZOLE 40 MG/10 ML VIAL IV SCH ×2 (09:35→21:51)
[2018-03-14] MEDS: POTASSIUM EFFERVESENT TAB 25 MEQ GT SCH ×2 (09:36→21:51)
[2018-03-14] MEDS: RIFAXIMIN 550 MG TAB PO SCH ×2 (09:36→21:51)
[2018-03-14] MEDS: SPIRONOLACTONE 25 MG TAB PO SCH (09:36)
[2018-03-14] MEDS: ENOXAPARIN SOD 30 MG/0.3 ML SYRINGE SC SCH (09:36)
[2018-03-15] VITALS (9 sets, daily range): BP systolic 108–150; BP diastolic 54–96
[2018-03-15] MEDS: ALBUTEROL SULF 2.5 MG/0.5ML(0.5%) NEB SOLN NEB SCH ×6 (02:31→22:20)
[2018-03-15] MEDS: IPRATROPIUM BROM 0.5 MG/2.5ML INH SOL NEB SCH ×6 (02:31→22:20)
[2018-03-15] MEDS: ACETYLCYSTEINE 20%(200MG/ML) SOL 4ML NEB SCH ×6 (02:32→22:20)
[2018-03-15] MEDS: LORazepam 2MG/ML-1ML VIAL IV PRN ×3 (02:46→21:19)
[2018-03-15 04:11] LABS: Hematocrit 29.9 % (36.0-46.0); Hemoglobin 10.1 g/dL (12.2-16.2); Mean Corpuscular Hemoglobin 30.3 pg (28.0-32.0); Mean Corpuscular Hgb Conc. 33.8 g/dL (32.0-36.0); Mean Corpuscular Volume 89.6 fL (80.0-100.0); Platelet Count (auto) 134 10^3/uL (140-450); Red Blood Cells 3.34 10^6/uL (4.0-5.20); White Blood Cell 12.1 10^3/uL (4.4-10.8)
[2018-03-15 04:16] LABS: Red Cell Distribution Width 21.8 % (11.8-14.3)
[2018-03-15 04:18] LABS: Band Neutrophils % (manual) 0; Basophils % (manual) 0 (0.0-2.0); Blast Cells 0; Metamyelocytes % 0; Myelocytes % 0; Promyelocytes % 0; Reactive Lymphocytes 0
[2018-03-15 04:19] LABS: INR 1.4 (0.9-1.15); Prothrombin Time 14.7 sec (9.27-12.13)
[2018-03-15] MEDS: metroNIDAZOLE 500MG/100ML 100 ML IV SCH (04:30)
[2018-03-15 04:32] LABS: Albumin 2.9 g/dL (3.4-5.0); Bilirubin, Total 3.4 mg/dL (0.2-1.0); Calcium 8.1 mg/dL (8.5-10.1); Total Protein 7.9 g/dL (6.4-8.2)
[2018-03-15 04:46] LABS: Eosinophils % (manual) 2 (0-7); Lymphocytes % (manual) 11 (10.0-50.0); Monocytes % (manual) 13 (0-12)
[2018-03-15] MEDS: FUROSEMIDE 40 MG/4 ML VIAL IV SCH ×2 (05:59→17:54)
[2018-03-15] MEDS: InsuLIN REG 1unit/0.01ml Soln (100units/ml) SC SCH ×4 (06:00→23:58)
[2018-03-15] MEDS: VANCOMYCIN HCL 125MG/5ML ORAL SOL PO SCH ×4 (06:00→23:57)
[2018-03-15] MEDS: ACCU-CHEK COMFORT CURVE STRIP VI SCH ×4 (06:15→23:58)
[2018-03-15] MEDS: BUDESONIDE (INHALATION) 0.5 MG/2 ML NEB NEB SCH ×2 (09:59→22:21)
[2018-03-15] MEDS: PANTOPRAZOLE 40 MG/10 ML VIAL IV SCH ×2 (10:28→21:45)
[2018-03-15] MEDS: POTASSIUM EFFERVESENT TAB 25 MEQ GT SCH ×2 (10:29→21:45)
[2018-03-15] MEDS: ENOXAPARIN SOD 30 MG/0.3 ML SYRINGE SC SCH (10:29)
[2018-03-15] MEDS: RIFAXIMIN 550 MG TAB PO SCH ×2 (10:30→21:46)
[2018-03-15] MEDS: SPIRONOLACTONE 25 MG TAB PO SCH (10:30)
[2018-03-16] VITALS: BP 130/52
[2018-03-16] MEDS: IPRATROPIUM BROM 0.5 MG/2.5ML INH SOL NEB SCH ×6 (02:16→22:26)
[2018-03-16] MEDS: ACETYLCYSTEINE 20%(200MG/ML) SOL 4ML NEB SCH ×6 (02:17→22:26)
[2018-03-16] MEDS: ALBUTEROL SULF 2.5 MG/0.5ML(0.5%) NEB SOLN NEB SCH ×6 (02:17→22:26)
[2018-03-16 04:00] VITALS: BP 121/76
[2018-03-16 05:03] LABS: Hematocrit 30.3 % (36.0-46.0); Hemoglobin 9.9 g/dL (12.2-16.2); Mean Corpuscular Hemoglobin 29.6 pg (28.0-32.0); Mean Corpuscular Hgb Conc. 32.7 g/dL (32.0-36.0); Mean Corpuscular Volume 90.5 fL (80.0-100.0); Platelet Count (auto) 150 10^3/uL (140-450); Red Blood Cells 3.35 10^6/uL (4.0-5.20); White Blood Cell 12.9 10^3/uL (4.4-10.8)
[2018-03-16 05:21] LABS: Red Cell Distribution Width 23.3 % (11.8-14.3)
[2018-03-16 05:22] LABS: Band Neutrophils % (manual) 0; Basophils % (manual) 0 (0.0-2.0); Blast Cells 0; Eosinophils % (manual) 0 (0-7); Metamyelocytes % 0; Myelocytes % 0; Promyelocytes % 0; Reactive Lymphocytes 0
[2018-03-16] MEDS: VANCOMYCIN HCL 125MG/5ML ORAL SOL PO SCH ×3 (05:46→18:21)
[2018-03-16] MEDS: FUROSEMIDE 40 MG/4 ML VIAL IV SCH ×2 (05:54→18:22)
[2018-03-16] MEDS: InsuLIN REG 1unit/0.01ml Soln (100units/ml) SC SCH ×4 (06:00→23:20)
[2018-03-16] MEDS: ACCU-CHEK COMFORT CURVE STRIP VI SCH ×4 (06:01→23:20)
[2018-03-16 06:59] LABS: Lymphocytes % (manual) 6 (10.0-50.0); Monocytes % (manual) 12 (0-12)
[2018-03-16 08:00] VITALS: BP 115/74
[2018-03-16] MEDS: SPIRONOLACTONE 25 MG TAB PO SCH (09:52)
[2018-03-16] MEDS: POTASSIUM EFFERVESENT TAB 25 MEQ GT SCH ×2 (09:52→22:00)
[2018-03-16] MEDS: PANTOPRAZOLE 40 MG/10 ML VIAL IV SCH ×2 (09:52→22:00)
[2018-03-16] MEDS: RIFAXIMIN 550 MG TAB PO SCH ×2 (09:53→22:00)
[2018-03-16] MEDS: ENOXAPARIN SOD 30 MG/0.3 ML SYRINGE SC SCH (09:53)
[2018-03-16 11:56] VITALS: BP 123/88
[2018-03-16] MEDS ORDERED: LACTULOSE 20Gm/30ML SOLN PO ONE (14:45)
[2018-03-16] MEDS: BUDESONIDE (INHALATION) 0.5 MG/2 ML NEB NEB SCH ×2 (15:03→18:30)
[2018-03-16 15:54] VITALS: BP 119/74
[2018-03-16 19:47] VITALS: BP 111/50
[2018-03-16] MEDS: LORazepam 2MG/ML-1ML VIAL IV PRN (22:43)
[2018-03-17] VITALS (7 sets, daily range): BP systolic 102–133; BP diastolic 59–79
[2018-03-17] MEDS: VANCOMYCIN HCL 125MG/5ML ORAL SOL PO SCH ×4 (00:01→18:06)
[2018-03-17] MEDS: ALBUTEROL SULF 2.5 MG/0.5ML(0.5%) NEB SOLN NEB SCH ×6 (02:27→22:07)
[2018-03-17] MEDS: ACETYLCYSTEINE 20%(200MG/ML) SOL 4ML NEB SCH ×6 (02:27→22:07)
[2018-03-17] MEDS: IPRATROPIUM BROM 0.5 MG/2.5ML INH SOL NEB SCH ×6 (02:27→22:07)
[2018-03-17] MEDS: FUROSEMIDE 40 MG/4 ML VIAL IV SCH ×2 (05:37→18:05)
[2018-03-17] MEDS: ACCU-CHEK COMFORT CURVE STRIP VI SCH ×3 (05:38→18:02)
[2018-03-17] MEDS: InsuLIN REG 1unit/0.01ml Soln (100units/ml) SC SCH ×3 (05:47→18:00)
[2018-03-17] MEDS: ENOXAPARIN SOD 40 MG/0.4 ML SYRINGE SC SCH (10:02)
[2018-03-17] MEDS: SPIRONOLACTONE 25 MG TAB PO SCH (10:03)
[2018-03-17] MEDS: POTASSIUM EFFERVESENT TAB 25 MEQ GT SCH ×2 (10:03→21:32)
[2018-03-17] MEDS: PANTOPRAZOLE 40 MG/10 ML VIAL IV SCH ×2 (10:03→21:33)
[2018-03-17] MEDS: RIFAXIMIN 550 MG TAB PO SCH ×2 (10:04→21:33)
[2018-03-17] MEDS: BUDESONIDE (INHALATION) 0.5 MG/2 ML NEB NEB SCH ×2 (10:28→18:55)
[2018-03-18] MEDS: ACCU-CHEK COMFORT CURVE STRIP VI SCH ×4 (00:01→18:00)
[2018-03-18] MEDS: VANCOMYCIN HCL 125MG/5ML ORAL SOL PO SCH ×4 (00:19→18:01)
[2018-03-18] MEDS: ALBUTEROL SULF 2.5 MG/0.5ML(0.5%) NEB SOLN NEB SCH ×6 (02:40→22:13)
[2018-03-18] MEDS: ACETYLCYSTEINE 20%(200MG/ML) SOL 4ML NEB SCH ×6 (02:40→22:13)
[2018-03-18] MEDS: IPRATROPIUM BROM 0.5 MG/2.5ML INH SOL NEB SCH ×6 (02:40→22:13)
[2018-03-18 05:38] LABS: Hematocrit 31.2 % (36.0-46.0); Hemoglobin 10.5 g/dL (12.2-16.2); Mean Corpuscular Hgb Conc. 33.6 g/dL (32.0-36.0); Mean Corpuscular Volume 92.2 fL (80.0-100.0); Platelet Count (auto) 172 10^3/uL (140-450); Red Blood Cells 3.39 10^6/uL (4.0-5.20); White Blood Cell 10.4 10^3/uL (4.4-10.8)
[2018-03-18 05:44] LABS: Red Cell Distribution Width 25.4 % (11.8-14.3)
[2018-03-18 05:45] LABS: Band Neutrophils % (manual) 0; Basophils % (manual) 0 (0.0-2.0); Blast Cells 0; Eosinophils % (manual) 0 (0-7); Metamyelocytes % 0; Myelocytes % 0; Promyelocytes % 0; Reactive Lymphocytes 0
[2018-03-18] MEDS: InsuLIN REG 1unit/0.01ml Soln (100units/ml) SC SCH ×4 (06:00→18:00)
[2018-03-18 06:05] LABS: Potassium 4.2 mmol/L (3.5-5.1)
[2018-03-18 06:11] LABS: Albumin 2.9 g/dL (3.4-5.0); BUN/Creatinine Ratio 33.9; Calcium 8.4 mg/dL (8.5-10.1)
[2018-03-18] MEDS: FUROSEMIDE 40 MG/4 ML VIAL IV SCH (06:16)
[2018-03-18 06:23] LABS: Bilirubin, Total 3.1 mg/dL (0.2-1.0); Total Protein 8.4 g/dL (6.4-8.2)
[2018-03-18 06:35] LABS: Lymphocytes % (manual) 18 (10.0-50.0); Monocytes % (manual) 22 (0-12)
[2018-03-18 08:00] VITALS: BP 134/76
[2018-03-18] MEDS: ENOXAPARIN SOD 30 MG/0.3 ML SYRINGE SC SCH (10:00)
[2018-03-18] MEDS: PANTOPRAZOLE 40 MG/10 ML VIAL IV SCH ×2 (10:17→22:20)
[2018-03-18] MEDS: RIFAXIMIN 550 MG TAB PO SCH ×2 (10:17→22:00)
[2018-03-18] MEDS: POTASSIUM EFFERVESENT TAB 25 MEQ GT SCH ×2 (10:17→22:20)
[2018-03-18] MEDS: SPIRONOLACTONE 25 MG TAB PO SCH (10:18)
[2018-03-18] MEDS: ENOXAPARIN SOD 40 MG/0.4 ML SYRINGE SC SCH (10:18)
[2018-03-18] MEDS: BUDESONIDE (INHALATION) 0.5 MG/2 ML NEB NEB SCH ×2 (10:31→18:10)
[2018-03-18] MEDS ORDERED: LACTULOSE 20Gm/30ML SOLN PO PRN (11:45)
[2018-03-18 11:50] VITALS: BP 122/67
[2018-03-18 16:23] VITALS: BP 130/80
[2018-03-18 17:21] VITALS: BP 113/76
[2018-03-18] MEDS: FUROSEMIDE 40 MG TAB PO SCH (18:00)
[2018-03-18] MEDS: DOCUSATE SOD 100 MG CAP PO SCH (21:57)
[2018-03-18 22:00] VITALS: BP 127/77
[2018-03-18] MEDS: ACETAMINOPHEN 650 mg PER 20 mL UD PO PRN (22:20)
[2018-03-19] MEDS: ACCU-CHEK COMFORT CURVE STRIP VI SCH ×4 (00:05→23:46)
[2018-03-19] MEDS: VANCOMYCIN HCL 125MG/5ML ORAL SOL PO SCH ×4 (00:05→23:37)
[2018-03-19] MEDS: IPRATROPIUM BROM 0.5 MG/2.5ML INH SOL NEB SCH ×6 (02:06→22:27)
[2018-03-19] MEDS: ALBUTEROL SULF 2.5 MG/0.5ML(0.5%) NEB SOLN NEB SCH ×6 (02:06→22:27)
[2018-03-19] MEDS: ACETYLCYSTEINE 20%(200MG/ML) SOL 4ML NEB SCH ×6 (02:06→22:29)
[2018-03-19 05:00] VITALS: BP 94/46
[2018-03-19] MEDS: FUROSEMIDE 40 MG TAB PO SCH (05:40)
[2018-03-19] MEDS: InsuLIN REG 1unit/0.01ml Soln (100units/ml) SC SCH ×4 (05:53→23:46)
[2018-03-19 06:09] LABS: Hematocrit 29.7 % (36.0-46.0); Hemoglobin 9.8 g/dL (12.2-16.2); Mean Corpuscular Hemoglobin 30.8 pg (28.0-32.0); Mean Corpuscular Hgb Conc. 33.1 g/dL (32.0-36.0); Mean Corpuscular Volume 92.9 fL (80.0-100.0); Platelet Count (auto) 155 10^3/uL (140-450); White Blood Cell 9.9 10^3/uL (4.4-10.8)
[2018-03-19 06:16] LABS: Red Cell Distribution Width 25.4 % (11.8-14.3)
[2018-03-19 06:17] LABS: Band Neutrophils % (manual) 0; Basophils % (manual) 0 (0.0-2.0); Blast Cells 0; Metamyelocytes % 0; Myelocytes % 0; Promyelocytes % 0; Reactive Lymphocytes 0
[2018-03-19 06:46] LABS: Eosinophils % (manual) 2 (0-7); Lymphocytes % (manual) 10 (10.0-50.0); Monocytes % (manual) 16 (0-12)
[2018-03-19 09:00] VITALS: BP 99/69
[2018-03-19] MEDS: POTASSIUM EFFERVESENT TAB 25 MEQ GT SCH ×2 (09:18→22:19)
[2018-03-19] MEDS: SPIRONOLACTONE 25 MG TAB PO SCH (09:18)
[2018-03-19] MEDS: PANTOPRAZOLE 40 MG/10 ML VIAL IV SCH ×2 (09:18→22:19)
[2018-03-19] MEDS: RIFAXIMIN 550 MG TAB PO SCH ×2 (09:19→22:19)
[2018-03-19] MEDS: ENOXAPARIN SOD 30 MG/0.3 ML SYRINGE SC SCH (09:20)
[2018-03-19] MEDS: DOCUSATE SOD 100 MG CAP PO SCH ×2 (10:00→22:19)
[2018-03-19] MEDS: BUDESONIDE (INHALATION) 0.5 MG/2 ML NEB NEB SCH ×2 (10:10→18:39)
[2018-03-19 12:53] VITALS: BP 105/49
[2018-03-19] MEDS: LORazepam 2MG/ML-1ML VIAL IV PRN (13:10)
[2018-03-19 13:38] LABS: Urine Bacteria FEW /hpf (None Seen); Urine Blood Negative /uL (Negative); Urine Mucus FEW (None Seen); Urine Specific Gravity 1.027 (1.001-1.035); Urine WBC 98 /hpf (0 - 5)
[2018-03-19 16:41] VITALS: BP 111/62
[2018-03-19 22:00] VITALS: BP 93/64
[2018-03-20] MEDS: IPRATROPIUM BROM 0.5 MG/2.5ML INH SOL NEB SCH ×6 (02:11→22:15)
[2018-03-20] MEDS: ACETYLCYSTEINE 20%(200MG/ML) SOL 4ML NEB SCH ×6 (02:11→22:15)
[2018-03-20] MEDS: ALBUTEROL SULF 2.5 MG/0.5ML(0.5%) NEB SOLN NEB SCH ×6 (02:11→22:15)
[2018-03-20 05:00] VITALS: BP 105/81
[2018-03-20] MEDS: VANCOMYCIN HCL 125MG/5ML ORAL SOL PO SCH ×5 (05:38→23:45)
[2018-03-20] MEDS: FUROSEMIDE 40 MG TAB PO SCH ×2 (05:38→18:00)
[2018-03-20] MEDS: ACCU-CHEK COMFORT CURVE STRIP VI SCH ×4 (05:38→23:45)
[2018-03-20] MEDS: InsuLIN REG 1unit/0.01ml Soln (100units/ml) SC SCH ×4 (05:46→23:45)
[2018-03-20 06:42] LABS: Hematocrit 29.2 % (36.0-46.0); Hemoglobin 9.6 g/dL (12.2-16.2); Mean Corpuscular Hemoglobin 31.2 pg (28.0-32.0); Mean Corpuscular Volume 94.4 fL (80.0-100.0); Platelet Count (auto) 141 10^3/uL (140-450); Red Blood Cells 3.09 10^6/uL (4.0-5.20); White Blood Cell 8.6 10^3/uL (4.4-10.8)
[2018-03-20] MEDS: BUDESONIDE (INHALATION) 0.5 MG/2 ML NEB NEB SCH ×2 (06:43→18:24)
[2018-03-20 07:04] LABS: Potassium 4.1 mmol/L (3.5-5.1)
[2018-03-20 07:10] LABS: BUN/Creatinine Ratio 47.7; Calcium 8.2 mg/dL (8.5-10.1)
[2018-03-20 07:20] LABS: Band Neutrophils % (manual) 0; Basophils % (manual) 0 (0.0-2.0); Blast Cells 0; Metamyelocytes % 0; Myelocytes % 0; Promyelocytes % 0; Reactive Lymphocytes 0; Red Cell Distribution Width 24.8 % (11.8-14.3)
[2018-03-20] MEDS: Ensure Enlive Strawberry 8oz Bottle PO SCH ×4 (08:00→18:00)
[2018-03-20 08:01] LABS: Eosinophils % (manual) 2 (0-7); Lymphocytes % (manual) 12 (10.0-50.0); Monocytes % (manual) 12 (0-12)
[2018-03-20 09:00] VITALS: BP 108/62
[2018-03-20] MEDS: POTASSIUM EFFERVESENT TAB 25 MEQ GT SCH ×3 (09:22→22:09)
[2018-03-20] MEDS: SPIRONOLACTONE 25 MG TAB PO SCH ×2 (09:23→09:42)
[2018-03-20] MEDS: PANTOPRAZOLE 40 MG/10 ML VIAL IV SCH (09:23)
[2018-03-20] MEDS: ENOXAPARIN SOD 30 MG/0.3 ML SYRINGE SC SCH (09:23)
[2018-03-20] MEDS: RIFAXIMIN 550 MG TAB PO SCH ×2 (09:23→22:00)
[2018-03-20] MEDS: DOCUSATE SOD 100 MG CAP PO SCH ×2 (10:00→22:00)
[2018-03-20 13:00] VITALS: BP 118/62
[2018-03-20 17:00] VITALS: BP 141/75
[2018-03-20 22:00] VITALS: BP 112/68
[2018-03-20] MEDS: PANTOPRAZOLE 40 MG TAB PO SCH (22:00)
[2018-03-21 05:36] LABS: Hematocrit 30.3 % (36.0-46.0); Hemoglobin 10.2 g/dL (12.2-16.2)
[2018-03-21 05:43] VITALS: BP 95/68
[2018-03-21] MEDS: InsuLIN REG 1unit/0.01ml Soln (100units/ml) SC SCH (06:00)
[2018-03-21] MEDS: FUROSEMIDE 40 MG TAB PO SCH (06:00)
[2018-03-21] MEDS: VANCOMYCIN HCL 125MG/5ML ORAL SOL PO SCH ×2 (06:17→11:55)
[2018-03-21] MEDS: ACCU-CHEK COMFORT CURVE STRIP VI SCH (06:18)
[2018-03-21] MEDS ORDERED: LEVOTHYROXINE SODIUM 25 MCG TAB PO SCH (07:00)
[2018-03-21] MEDS: ALBUTEROL SULF 2.5 MG/0.5ML(0.5%) NEB SOLN NEB SCH ×4 (07:02→14:00)
[2018-03-21] MEDS: BUDESONIDE (INHALATION) 0.5 MG/2 ML NEB NEB SCH (07:02)
[2018-03-21] MEDS: IPRATROPIUM BROM 0.5 MG/2.5ML INH SOL NEB SCH ×4 (07:02→14:00)
[2018-03-21] MEDS: ACETYLCYSTEINE 20%(200MG/ML) SOL 4ML NEB SCH ×3 (07:03→14:00)
[2018-03-21] MEDS: Ensure Enlive Strawberry 8oz Bottle PO SCH (08:00)
[2018-03-21 08:56] VITALS: BP 119/61
[2018-03-21] MEDS: POTASSIUM EFFERVESENT TAB 25 MEQ GT SCH (10:11)
[2018-03-21] MEDS: RIFAXIMIN 550 MG TAB PO SCH (10:12)
[2018-03-21] MEDS: SPIRONOLACTONE 25 MG TAB PO SCH (10:12)
[2018-03-21] MEDS: PANTOPRAZOLE 40 MG TAB PO SCH (10:12)
[2018-03-21] MEDS: DOCUSATE SOD 100 MG CAP PO SCH (10:12)
[2018-03-21] MEDS: ENOXAPARIN SOD 30 MG/0.3 ML SYRINGE SC SCH (10:12)
[2018-03-21] MEDS ORDERED: VANC125PO PO (11:52)
[2018-03-21 14:08] VITALS: BP 123/59
[2018-03-21 15:35] VITALS: BP 123/59
[2018-03-21] MEDS ORDERED: LACTULOSE 20Gm/30ML SOLN PO SCH (22:00)
[2018-03-21] MEDS ORDERED: POTASSIUM EFFERVESENT TAB 25 MEQ PO SCH (22:00)
== END 2018-03-21 16:00 | DRG 720 ==
LOC: ER 14:16 → OVERFLOW 14:17 → EDBD 14:17 → EDUNIT# 14:17 → ICU WEST 03-05 04:35 → DOU IN ICU 03-15 04:57 → TELE-EAST 03-18 17:10
PROVIDERS: ADMIT Internal Medicine; ATTEND Internal Medicine
PROC: 30233N1 Transfusion of Nonautologous Red Blood Cells into Peripheral Vein, Percutaneous Approach (ICD-10-PCS; 2018-03-02)
PROC: 30233K1 Transfusion of Nonautologous Frozen Plasma into Peripheral Vein, Percutaneous Approach (ICD-10-PCS; 2018-03-02)
PROC: 30233L1 Transfusion of Nonautologous Fresh Plasma into Peripheral Vein, Percutaneous Approach (ICD-10-PCS; 2018-03-02)
PROC: 02HV33Z Insertion of Infusion Device into Superior Vena Cava, Percutaneous Approach (ICD-10-PCS; 2018-03-03)
PROC: 0W9G3ZZ Drainage of Peritoneal Cavity, Percutaneous Approach (ICD-10-PCS; 2018-03-04)
PROC: 5A1955Z Respiratory Ventilation, Greater than 96 Consecutive Hours (ICD-10-PCS; principal; 2018-03-07)
PROC: 0BH17EZ Insertion of Endotracheal Airway into Trachea, Via Natural or Artificial Opening (ICD-10-PCS; 2018-03-07)
PROC: 0W9G3ZZ Drainage of Peritoneal Cavity, Percutaneous Approach (ICD-10-PCS; 2018-03-11)
DX: A41.9 Sepsis, unspecified organism (principal); N17.0 Acute kidney failure with tubular necrosis; I21.4 Non-ST elevation (NSTEMI) myocardial infarction; J96.01 Acute respiratory failure with hypoxia; E43 Unspecified severe protein-calorie malnutrition; R65.21 Severe sepsis with septic shock; G93.41 Metabolic encephalopathy; A04.72 Enterocolitis due to Clostridium difficile, not specified as recurrent; Z66 Do not resuscitate; J18.9 Pneumonia, unspecified organism; E87.6 Hypokalemia; K76.6 Portal hypertension; I50.32 Chronic diastolic (congestive) heart failure; K70.31 Alcoholic cirrhosis of liver with ascites; K72.90 Hepatic failure, unspecified without coma; N20.0 Calculus of kidney; Z87.442 Personal history of urinary calculi; D64.9 Anemia, unspecified; J44.9 Chronic obstructive pulmonary disease, unspecified; E87.1 Hypo-osmolality and hyponatremia; D69.6 Thrombocytopenia, unspecified; B18.2 Chronic viral hepatitis C; E87.5 Hyperkalemia; B96.5 Pseudomonas (aeruginosa) (mallei) (pseudomallei) as the cause of diseases classified elsewhere; E03.9 Hypothyroidism, unspecified; F10.10 Alcohol abuse, uncomplicated; F17.200 Nicotine dependence, unspecified, uncomplicated; I25.2 Old myocardial infarction; J98.11 Atelectasis; K31.89 Other diseases of stomach and duodenum; K59.00 Constipation, unspecified; K76.0 Fatty (change of) liver, not elsewhere classified; N39.0 Urinary tract infection, site not specified; Q77.4 Achondroplasia; T38.0X5A Adverse effect of glucocorticoids and synthetic analogues, initial encounter; K56.609 Unspecified intestinal obstruction, unspecified as to partial versus complete obstruction; M19.90 Unspecified osteoarthritis, unspecified site; I13.0 Hypertensive heart and chronic kidney disease with heart failure and stage 1 through stage 4 chronic kidney disease, or unspecified chronic kidney disease; J90 Pleural effusion, not elsewhere classified; L03.116 Cellulitis of left lower limb; L03.115 Cellulitis of right lower limb; E72.20 Disorder of urea cycle metabolism, unspecified; Z80.1 Family history of malignant neoplasm of trachea, bronchus and lung; Z80.3 Family history of malignant neoplasm of breast; Z81.8 Family history of other mental and behavioral disorders; Z82.49 Family history of ischemic heart disease and other diseases of the circulatory system; Z82.5 Family history of asthma and other chronic lower respiratory diseases; Z83.3 Family history of diabetes mellitus; Z86.19 Personal history of other infectious and parasitic diseases; Z87.11 Personal history of peptic ulcer disease; F41.9 Anxiety disorder, unspecified; Z59.0 Homelessness; Z90.49 Acquired absence of other specified parts of digestive tract; Z68.1 Body mass index [BMI] 19.9 or less, adult
CPT/HCPCS: 10022; 31500; 36415; 36430; 36556; 36600; 49083; 51702; 70450; 71045; 71275; 74176; 74250; 76700; 76705; 76942; 80048; 80053; 80061; 80307; 81001; 82140; 82150; 82270; 82378; 82550; 82805; 82962; 83036; 83605; 83690; 83735; 83880; 84132; 84443; 84484; 85007; 85014; 85018; 85025; 85027; 85045; 85379; 85610; 85652; 85730; 86850; 86900; 86901; 86920; 87040; 87070; 87081; 87086; 87088; 87186; 87205; 87493; 89051; 92610; 93306; 93970; 94002; 94003; 94640; 95819; 96361; 96365; 96375; 97110; 97116; 97163; 97530; 99291; A4605; A6257; C9113; G0378; J0696; J1815; J2250; J2543; J2704; J3430; J3480; J3490; J7060; P9047